=== PATIENT | male | born 1950 | race African-American/Black ===

== ENCOUNTER 2017-12-25 22:17 | Inpatient (IN) | payer MEDICARE, MEDICAID ==
[2017-12-26] MEDS ORDERED: Nitroglycerin 2% Ointment 1 INCH/1 GM Packet ONE (00:09)
[2017-12-26 00:42] LABS: Troponin I 0.042 ng/mL (< 0.028)
[2017-12-26] MEDS ORDERED: Acetaminophen 325 MG TAB PO PRN (01:10)
[2017-12-26] MEDS ORDERED: Ondansetron ODT 4 MG TAB SL PRN (01:10)
[2017-12-26 01:54] VITALS: BMI 28.9
[2017-12-26] MEDS ORDERED: Furosemide 40 MG/4 ML VIAL SLOW IVP SCH ×3 (06:00→14:00)
[2017-12-26 06:48] LABS: #Eosinphils 0.5 thou/uL (0.0-0.7); #Lymphocytes 0.8 thou/uL (1.20-3.40); #Monocytes 0.6 thou/uL (0.11-0.59); #Neutrophils 9.1 thou/uL (1.40-6.50); %Basophils 0.4 % (0.0-1.0); %Eosinophils 4.3 % (0.0-10.0); %Lymphocytes 7.4 % (21.0-51.0); %Monocytes 5.1 % (0.0-10.0); %Neutrophils 82.8 % (42.0-75.0); Hemoglobin 12.7 g/dL (14.0-18.0); Mean Corpuscular HGB CONC 32.8 g/dL (32.0-36.0); Mean Corpuscular Hemoglobin 27.3 pg (27.0-31.0); Mean Corpuscular Volume 83.3 fL (78.0-98.0); Mean Platelet Volume 8.7 fL (7.4-10.4); Platelet Count 458 thou/uL (130-400); RBC Distribution Width 18.7 % (11.5-14.5); Red Blood Cell (RBC) Count 4.65 mill/uL (4.70-6.10)
[2017-12-26 07:03] LABS: Anion Gap 12 mmol/L (10-20); BUN (Urea Nitrogen) 12 mg/dL (8.4-25.7); Calc. Creatinine Clearance 85 mL/min (70-130); Calcium 8.8 mg/dL (7.8-10.44); Carbon Dioxide 24 mmol/L (23-31); Chloride 89 mmol/L (98-107); Estimated GFR-MDRD 86; Glucose 105 mg/dL (80-115); Potassium 4.2 mmol/L (3.5-5.1); Sodium 121 mmol/L (136-145)
[2017-12-26 08:01] LABS: Hemoglobin A1c 4.9 % (4.0-6.0)
[2017-12-26 08:04] LABS: ALT (SGPT) 8 U/L (8-55); AST (SGOT) 15 U/L (5-34); Albumin 3.7 g/dL (3.4-4.8); Alkaline Phosphatase 128 U/L (40-150); Bilirubin, Direct 0.7 mg/dL (0.1-0.3); Bilirubin, Total 1.4 mg/dL (0.2-1.2); Protein, Total 5.9 g/dL (5.8-8.1)
[2017-12-26 08:09] LABS: Troponin I 0.059 ng/mL (< 0.028)
[2017-12-26] MEDS ORDERED: Aspirin 325 mg Enteric Coated Tablet PO SCH (09:00)
[2017-12-26] MEDS: Rivaroxaban 10 MG TAB PO SCH (09:41)
[2017-12-26] MEDS: Carvedilol 3.125 MG TAB PO SCH ×2 (09:41→20:43)
[2017-12-26] MEDS: levETIRAcetam 500 MG TAB PO SCH ×2 (09:42→20:43)
[2017-12-26] MEDS: metFORMIN 500 MG TAB PO SCH ×2 (09:42→16:50)
--- NOTE | 2017-12-26 09:58 | ULT ---
ABDOMINAL ULTRASOUND: Date: 12/26/17 HISTORY: Evaluate for ascites. Cirrhosis. FINDINGS: Liver is mildly prominent, measuring up to 18.0 cm. There is a small amount of fluid around the liver margin. Images of the gallbladder reveal mobile echogenic gallstones layering dependently. There is perichole cystic fluid and edema. Gallbladder wall is mildly thickened. Technologist describes a negative Pasquale y's sign. Common bile duct is normal caliber. The visualized spleen and pancreas appear unremarkable. Right kid rios is imaged and appears unremarkable. Evidence of a small right pleural effusion is noted. IMPRESSION: 1. Minimal ascites with a small amount of free fluid around the liver margin. 2. Right pleural effusion. 3. Cholelithiasis. The gallbladder wall is edematous, possibly on the basis of ascites. There is a n egative Ying's sign. POS: [facility]
[2017-12-26 10:27] LABS: Bilirubin Negative (Negative); Blood, Urine Negative (Negative); Clarity CLEAR (Clear); Glucose, Urine (Dipstick) Negative (Negative); Leukocyte Negative (Negative); Nitrite Negative (Negative); Protein, Urine (Dipstick) Negative (Neg-Trace); Specific Gravity, Urine 1.007 (1.002-1.036); Urobilinogen 0.2 mg/dL (0.2-1.0)
[2017-12-26] MEDS ORDERED: Bisacodyl 10 MG SUPP PR PRN (10:44)
[2017-12-26] MEDS ORDERED: Senokot 8.6 MG TAB PO PRN (10:44)
[2017-12-26] MEDS ORDERED: Milk Of Magnesia 30 ML UDCUP PO PRN (10:44)
--- NOTE | 2017-12-26 10:44 | PDOC.PN ---
- Subjective Encounter Start Date: 12/26/17 Encounter Start Time: 10:42 Mr. Romero was seen today in follow-up of abdominal distention and confusion. He was admitted earlier this morning by Dr. Rivera. He is awake and alert, but oriented to person only. He is complaining of pain in his left foot, says it feels like someone pinched it really hard. He denies feeling short of breath, but admits to lower extremity edema. He also denies abdominal pain. He tells me his last bowel movement was yesterday. - Objective MAR Reviewed: Yes Vital Signs & Weight: Vital Signs (12 hours) Temp Pulse Resp BP Pulse Ox 12/26/17 08:45 97.1 F L 82 18 119/70 96 12/26/17 04:00 97.8 F 81 14 125/65 97 12/26/17 01:53 98.7 F 84 22 H 121/79 96 12/26/17 01:15 98.7 F 84 22 H 96 Weight Weight 190 lb 4.8 oz I&O: 12/25/17 12/26/17 12/27/17 06:59 06:59 06:59 Output Total 1250 Balance -1250 Result Diagrams: 12/26/17 06:38 12/26/17 06:38 Additional Labs: Accuchecks 12/26/17 05:59 POC Glucose 109 Phys Exam - Physical Examination HEENT: PERRLA, sclera anicteric Respiratory: no wheezing, clear to auscultation bilateral + rales at the bases Cardiovascular: RRR, no significant murmur, no rub Gastrointestinal: soft, non-tender, positive bowel sounds + distended Musculoskeletal: edema present + edema and warmth of the left foot, skin excoriation of the dorum R foot edema, no warmth Neurological: non-focal, moves all 4 limbs Dx/Plan (1) CHF exacerbation Code(s): I50.9 - HEART FAILURE, UNSPECIFIED Status: Acute (2) Acute metabolic encephalopathy Code(s): G93.41 - METABOLIC ENCEPHALOPATHY Status: Acute (3) Swelling of left foot Code(s): M79.89 - OTHER SPECIFIED SOFT TISSUE DISORDERS Status: Acute (4) Cholelithiasis Code(s): K80.20 - CALCULUS OF GALLBLADDER W/O CHOLECYSTITIS W/O OBSTRUCTION Status: Acute (5) Hypertension Code(s): I10 - ESSENTIAL (PRIMARY) HYPERTENSION Status: Acute (6) Diabetes mellitus type 2 in nonobese Code(s): E11.9 - TYPE 2 DIABETES MELLITUS WITHOUT COMPLICATIONS Status: Acute - Plan * Abdominal distention- this is thought to be due to CHF exacerbation- will continue to diurese- the abdominal ultrasound demonstrated only minimal ascites - will therefore check an Abdominal series to rule out obstruction/ileus * CHF- ? type- await Echo, and will check BNP * Cholelithiasis- I doubt this is contributing to his symptoms, but can consider HIDA, if is mental status does not improve * Encephalopathy- UA has been ordered, will continue to monitor * Left foot pain- ? cellulitis vs. Gout- will check a uric acid, and start Rocephin empirically * ? DM- will add SSI * Hyponatremia- ? volume overload- from CHF vs. possible liver disease- will observe sodium level after diuresing- and re-evaluate. * Xarelto- Not sure why he is on anticoagulation- will need to find old records
[2017-12-26] MEDS ORDERED: Dextrose 50% Abboject 50 ML SYRINGE SLOW IVP PRN (10:57)
[2017-12-26] MEDS ORDERED: HumaLOG 300 UNITS/3 ML VIAL SC PRN ×2 (10:57)
[2017-12-26] MEDS ORDERED: Dextrose 5% in Water 1,000 ML IV PRN (10:57)
[2017-12-26] MEDS: cefTRIAXone\\ROCEPHIN 1 GM in Sodium Chloride 0.9% 100 ML IVPB SCH (11:15)
[2017-12-26 12:31] LABS: Anion Gap 11 mmol/L (10-20); BUN (Urea Nitrogen) 12 mg/dL (8.4-25.7); Calc. Creatinine Clearance 84 mL/min (70-130); Calcium 8.6 mg/dL (7.8-10.44); Carbon Dioxide 26 mmol/L (23-31); Chloride 89 mmol/L (98-107); Estimated GFR-MDRD 86; Glucose 110 mg/dL (80-115); Potassium 4.2 mmol/L (3.5-5.1); Sodium 122 mmol/L (136-145)
--- NOTE | 2017-12-26 13:25 | RAD ---
ABDOMEN 1 VIEW: Date: 12/26/17 HISTORY: Abdominal distention in a 67-year-old male. FINDINGS: There is some gas and fecal material in the colon, including some solid fecal material in a minimally dilated rectum. No evidence for large or small bowel obstruction. There is some rotation to the left , as well as motion artifact, which somewhat lowers the sensitivity of this study. No overt calculus. IMPRESSION: No overt large or small bowel obstruction. Solid fecal material in a minimally dilated rectum, eviden ce for some constipation. POS: [facility]
[2017-12-26 15:32] LABS: Sodium 122 mmol/L (136-145)
--- NOTE | 2017-12-26 15:59 | CON ---
DATE OF CONSULTATION: 12/26/2017 SERVICE: Renal medicine. HISTORY OF PRESENT ILLNESS: Mr. Romero is a 67-year-old black male who was admitted for abdominal p ain/distention. He was found to have anasarca. He does have a history of CHF. He was also noted to be hyponatremic. At that time, we felt that due to the volume overload, he may have dilutional hypo natremia. This morning, he was feeling better. His serum sodium is also slightly improved. He was started on Lasix 80 mg IV q.12. He has no other complaints. REVIEW OF SYSTEMS: The patient states that he has no chest pain. Mild shortness of breath. Positiv e for abdominal distention. Positive for chronic leg edema. Occasional nausea. No headache, no dip lopia, no sore throat, no syncopal episode. Positive for constipation, no diarrhea. Occasional join t pains. HOME MEDICATIONS: Includes the following; Benadryl 50 mg daily, metformin 500 mg b.i.d., carvedilol 3.125 mg once a day, Xarelto 20 mg once a day, risperidone 4 mg daily, levetiracetam 500 mg 2 times a day. PAST MEDICAL HISTORY: The patient has history of CHF. He has history of type 2 diabetes mellitus. He has history of seizure disorder? The patient has also history of hypertension, type 2 diabetes me llitus. He actually has history of schizophrenia. PAST SURGICAL HISTORY: Denies any surgeries. SOCIAL HISTORY: The patient has decreased hearing. He is and lives with his . 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 Education: 12th grade. Currently, not smoking. Currently, denies any alcohol intake. No children. ALLERGIES: No known drug allergies. TRAUMA: None. IMMUNIZATIONS: Unknown. HOSPITALIZATIONS: Please see past medical history. FAMILY HISTORY: Noncontributory. PHYSICAL EXAMINATION: VITAL SIGNS: Blood pressure is 119/70, heart rate 82, respiratory rate 18, temperature 97.1, pulse o x 96%. GENERAL: Noted to be awake, alert, comfortable, not in distress. SKIN: Adequate turgor. HEENT: He has pinkish conjunctivae, anicteric sclerae. NECK: No neck mass, no carotid bruits, no JVD. CHEST: No deformities. LUNGS: Decreased breath sounds. HEART: Normal sinus rhythm. No murmur, no gallops, no rubs. ABDOMEN: Globular, soft, nontender. Mild ascites. EXTREMITIES: Positive for edema. NEUROLOGICAL: Awake, oriented to 3 spheres. Moving all extremities. No tremors, no asterixis, no a taxia. CURRENT HOSPITAL MEDICATIONS: Includes ceftriaxone 1 g IV daily and Lasix 80 mg IV q.12, Humalog sli ding scale. LABORATORY AND X-RAY FINDINGS: Laboratories of 12/26/2017; urinalysis was negative. Serologies: He patitis C antibody negative. Initial sodium from [place] was 117/119. Currently, it is 121. Potassium 4.2, chloride 89, carbon dioxide 24, BUN 12, creatinine 1.04, glucose 105, calcium 8.8. Ultrasound of the abdomen shows right pleural effusion, but minimal ascites, cholelithiasis. ASSESSMENT AND PLAN: 1. Anasarca. I agree with Lasix 80 mg IV q.12. Adjust as needed. We will observe how renal functi on will respond in 2 days. Continue free water restriction. 2. Anasarca - he does not show any proteinuria from the urine. This pleural effusion may be related to underlying cardiac problem. I would suggest we do a cardiac workup for this patient, if this has not been done in the past. Please note he has significant pleural effusion. Continue diuresis. We will consider rechecking base met and CBC in a.m. 3. Hyponatremia - most likely dilutional in etiology. Agree with current IV diuretics. I will adju st diuretics as needed.
[2017-12-26 18:52] LABS: Anion Gap 15 mmol/L (10-20); BUN (Urea Nitrogen) 11 mg/dL (8.4-25.7); Calc. Creatinine Clearance 76 mL/min (70-130); Calcium 8.9 mg/dL (7.8-10.44); Carbon Dioxide 27 mmol/L (23-31); Chloride 87 mmol/L (98-107); Estimated GFR-MDRD 75; Glucose 94 mg/dL (80-115); Potassium 4.7 mmol/L (3.5-5.1); Sodium 124 mmol/L (136-145)
[2017-12-26] MEDS: risperiDONE 1 MG TAB PO SCH (20:43)
[2017-12-26] MEDS: diphenhydrAMINE 50 MG CAP PO SCH (20:43)
[2017-12-26] MEDS: Docusate 100 MG CAP PO SCH (20:43)
[2017-12-27 01:06] LABS: Anion Gap 15 mmol/L (10-20); BUN (Urea Nitrogen) 12 mg/dL (8.4-25.7); Calc. Creatinine Clearance 74 mL/min (70-130); Calcium 8.6 mg/dL (7.8-10.44); Carbon Dioxide 25 mmol/L (23-31); Chloride 91 mmol/L (98-107); Estimated GFR-MDRD 73; Glucose 76 mg/dL (80-115); Potassium 3.9 mmol/L (3.5-5.1); Sodium 127 mmol/L (136-145)
[2017-12-27 08:08] LABS: #Eosinphils 0.5 thou/uL (0.0-0.7); #Lymphocytes 1.1 thou/uL (1.20-3.40); #Monocytes 0.5 thou/uL (0.11-0.59); #Neutrophils 8.5 thou/uL (1.40-6.50); %Basophils 0.3 % (0.0-1.0); %Eosinophils 4.6 % (0.0-10.0); %Lymphocytes 10.2 % (21.0-51.0); %Monocytes 5.1 % (0.0-10.0); %Neutrophils 79.8 % (42.0-75.0); Hemoglobin 13.4 g/dL (14.0-18.0); Mean Corpuscular HGB CONC 32.3 g/dL (32.0-36.0); Mean Corpuscular Hemoglobin 27.4 pg (27.0-31.0); Mean Corpuscular Volume 84.8 fL (78.0-98.0); Mean Platelet Volume 8.3 fL (7.4-10.4); Platelet Count 443 thou/uL (130-400); RBC Distribution Width 18.6 % (11.5-14.5); White Blood Cell (WBC) Count 10.6 thou/uL (4.8-10.8)
[2017-12-27 08:12] LABS: Anion Gap 14 mmol/L (10-20); BUN (Urea Nitrogen) 11 mg/dL (8.4-25.7); Calc. Creatinine Clearance 76 mL/min (70-130); Calcium 8.8 mg/dL (7.8-10.44); Carbon Dioxide 25 mmol/L (23-31); Chloride 93 mmol/L (98-107); Estimated GFR-MDRD 76; Glucose 88 mg/dL (80-115); Sodium 128 mmol/L (136-145)
[2017-12-27] MEDS ORDERED: Prevnar 13-Val Conj/PF 0.5 ML SYRINGE IM ONE (09:00)
--- NOTE | 2017-12-27 09:31 | PRG ---
DATE OF SERVICE: 12/27/2017 SERVICE: Renal Medicine. SUBJECTIVE: Mr. Romero is a 67-year-old black male with anasarca and was referred to Nephrology for his hyponatremia. His initial serum sodium was less than 120. He is now currently 128. He was giv en IV Lasix 80 mg IV q.12 hours. Currently, it is now on hold. No other complaints. He voices no s hortness of breath or chest pain. OBJECTIVE: VITAL SIGNS: Blood pressure 137/76, heart rate 84, respiratory rate 16, temperature 98.1, pulse ox 9 6%. GENERAL: Awake, alert, comfortable, not in distress. SKIN: Adequate turgor. HEENT: Pinkish conjunctivae, anicteric sclerae. NECK: No neck mass, no carotid bruits, no JVD. CHEST: No deformities. LUNGS: Decreased breath sounds. HEART: Normal sinus rhythm. No murmur, no gallops, no rubs. ABDOMEN: Globular, soft, nontender, no masses. He has some mild ascites. EXTREMITIES: Positive for edema. MEDICATIONS: Of 12/27/2017 was reviewed. LABORATORY DATA AND IMAGING: Of 12/27/2017, sodium was 128, potassium 4, chloride 93, carbon dioxide 25, BUN 11, creatinine 1.16, glucose 88, calcium 8.8. BNP is 982.1. White count 10.6, hemoglobin 1 3.4. Cardiac echo showed an ejection fraction of 15%-20%. ASSESSMENT AND PLAN: 1. Hyponatremia secondary to dilutional hyponatremia. My suggestion is at least to maintain him Las ix 40 mg tab b.i.d. He does have anasarca and history of congestive heart failure. 2. Congestive heart failure - repeat cardiac echo showed 15%-20%. Resume Lasix 40 mg tab b.i.d. Please note that the serum sodium is much improved compared on admission. Continue supportive care.
[2017-12-27] MEDS: Carvedilol 3.125 MG TAB PO SCH ×2 (09:55→20:48)
[2017-12-27] MEDS: Docusate 100 MG CAP PO SCH ×2 (09:55→20:48)
[2017-12-27] MEDS: metFORMIN 500 MG TAB PO SCH ×2 (09:55→17:48)
[2017-12-27] MEDS: Rivaroxaban 10 MG TAB PO SCH (09:56)
[2017-12-27] MEDS: levETIRAcetam 500 MG TAB PO SCH ×2 (09:56→20:47)
--- NOTE | 2017-12-27 10:00 | PDOC.PN ---
- Subjective Encounter Start Date: 12/27/17 Encounter Start Time: 09:58 Mr. Romero was seen today in follow-up of CHF exacerbation. He is still confused. He says he feel rough, but can not explain this much further. He is laying flat in bed, but does not appear in distress. - Objective MAR Reviewed: Yes Vital Signs & Weight: Vital Signs (12 hours) Temp Pulse Resp BP Pulse Ox 12/27/17 08:13 98.1 F 84 16 137/76 96 Weight Weight 190 lb 4.8 oz I&O: 12/26/17 12/27/17 12/28/17 06:59 06:59 06:59 Intake Total 938 Output Total 1250 4400 Balance -1250 -8612 Result Diagrams: 12/27/17 07:38 12/27/17 07:38 Additional Labs: Accuchecks 12/27/17 12/26/17 12/26/17 05:56 20:46 16:52 POC Glucose 84 100 120 H 12/26/17 11:26 POC Glucose 128 H Phys Exam - Physical Examination HEENT: PERRLA Respiratory: no wheezing + rales at the bases R>L Cardiovascular: RRR, no significant murmur, no rub Gastrointestinal: soft, non-tender, no distention, positive bowel sounds Musculoskeletal: edema present + edema, bot ankles, but decreased from yesterday Dx/Plan (1) CHF exacerbation Code(s): I50.9 - HEART FAILURE, UNSPECIFIED Status: Acute (2) Acute metabolic encephalopathy Code(s): G93.41 - METABOLIC ENCEPHALOPATHY Status: Acute (3) Swelling of left foot Code(s): M79.89 - OTHER SPECIFIED SOFT TISSUE DISORDERS Status: Acute (4) Cholelithiasis Code(s): K80.20 - CALCULUS OF GALLBLADDER W/O CHOLECYSTITIS W/O OBSTRUCTION Status: Acute (5) Hypertension Code(s): I10 - ESSENTIAL (PRIMARY) HYPERTENSION Status: Acute (6) Diabetes mellitus type 2 in nonobese Code(s): E11.9 - TYPE 2 DIABETES MELLITUS WITHOUT COMPLICATIONS Status: Acute (7) Acute on chronic systolic heart failure Code(s): I50.23 - ACUTE ON CHRONIC SYSTOLIC (CONGESTIVE) HEART FAILURE Status : Acute (8) Acute on chronic systolic heart failure, NYHA class 3 Code(s): I50.23 - ACUTE ON CHRONIC SYSTOLIC (CONGESTIVE) HEART FAILURE Status : Acute - Plan * Acute on chronic systolic heart failure- he appears to be a class 2, or 3, but he is a poor historian- Will continue to diurese * His EF is very low- I spoke with his niece on the phone, and she tells me that his Primary Care Provider is Dr. Mccauley in [facility],and his phone number is [phone]. She says that he told the patient that his heart is " weak" and had referred him to see a Diagnostics Tech in [place], but the patient has not yet gone. She also tells me he has a history of Diabetes and hypertension, as well as seizure disorder. When asked why he is on the blood thinner Xarelto, she says he has a condition which starts with the letter "P" and is a long word. I said Pulmonary Embolus, and she says " that's it". * CHF- will consult Cardiology * DM- follow-up with accuchecks,and SSI * Seizure disorder- will clarify and continue his home medications * History of PE- continue Xarelto * Hyponatremia- likely due to CHF- will continue with diuresing- and continue to monitor- this is improving * Will also request his records from Dr. Mccauley * Patient's sister- Hazel Lovell [phone] or cell- [phone].
--- NOTE | 2017-12-27 11:41 | RAD ---
CHEST 1 VIEW: HISTORY: Dyspnea. CHF. COMPARISON: None. FINDINGS: Enlarged cardiac silhouette. Bibasilar pleural and parenchymal changes. No pneumothorax. IMPRESSION: Congestive heart failure. POS: [facility]
[2017-12-27] MEDS: cefTRIAXone\\ROCEPHIN 1 GM in Sodium Chloride 0.9% 100 ML IVPB SCH (11:55)
[2017-12-27 14:03] LABS: Anion Gap 12 mmol/L (10-20); BUN (Urea Nitrogen) 11 mg/dL (8.4-25.7); Calc. Creatinine Clearance 81 mL/min (70-130); Calcium 8.7 mg/dL (7.8-10.44); Carbon Dioxide 27 mmol/L (23-31); Chloride 95 mmol/L (98-107); Estimated GFR-MDRD 81; Glucose 79 mg/dL (80-115); Potassium 4.1 mmol/L (3.5-5.1); Sodium 130 mmol/L (136-145)
[2017-12-27] MEDS: Furosemide 40 MG TAB PO SCH (14:13)
--- NOTE | 2017-12-27 16:10 | CON ---
DATE OF CONSULTATION: 12/27/2017 REASON FOR CONSULTATION: Heart failure. HISTORY OF PRESENT ILLNESS: Mr. Romero is a 67-year-old -[place] gentleman, who comes to [facility] for abdominal distention and pain. He was found to have anasarca with fluid in both legs and ascites. He has a history of heart failure, apparently was also hyponatremic. He was started on IV Lasix and he has diuresed well. His breathing is better. His edema is still there, but his abdo ari distention is better. He is somewhat confused and unable to give a good history. He does not know much about his health. According to records, Dr. Beach' note is very nice and she spoke with his primary care doctor, who apparently just recently diagnosed him with a heart failure and a reduc ed EF and had sent him to see a choker hooker in [place], but apparently [facility]. Currently, he is unable to give me much history, and there is no one else in the room, but the sitter. PAST MEDICAL HISTORY: 1. History of heart failure as above. 2. Type 2 diabetes. 3. Seizure disorder. 4. Hypertension. 5. Schizophrenia apparently. 6. History of pulmonary embolism, for which he is on Xarelto at this time. OUTPATIENT MEDICATIONS: 1. Benadryl 50 mg a day. 2. Metformin 500 mg b.i.d. 3. Carvedilol 3.125 mg b.i.d. 4. Xarelto 10 mg a day. 5. Risperidone 4 mg a day. 6. Levetiracetam/Keppra 500 mg twice a day. PAST SURGICAL HISTORY: None. SOCIAL HISTORY: No alcohol, tobacco, or drugs from chart review. ALLERGIES: No known drug allergies. FAMILY HISTORY: Unobtainable, as patient is confused. REVIEW OF SYSTEMS: Unobtainable, as the patient is confused. PHYSICAL EXAMINATION: VITAL SIGNS: Temperature 98.0, pulse 79, respiratory rate 17, satting 96% on room air, blood pressur e 107/62. GENERAL: Awake, alert, oriented to person only, in no distress. HEENT: Normocephalic, atraumatic. NECK: Supple, with JVP at about 12 cm of water. LUNGS: Clear bilaterally. CARDIOVASCULAR: S1 and S2, no S3. ABDOMEN: Soft. EXTREMITIES: A 3+ edema. SKIN: Warm and dry. LABORATORY WORK: Reviewed. White count 11, down to 10.6; hemoglobin 13.4; platelet count of 443. C hemistries: Sodium was 121 on admission, up to 130 now. BNP on admission was 811 and this was up to 982. UA is unremarkable. Keppra level is normal. Troponins have been in the intermediate range. Chest x-ray on admission, findings suggestive of heart failure. Abdominal ultrasound showed minimal ascites and a small amount of free fluid around the liver margin, right pleural effusion, and cholelithiasis. ASSESSMENT AND PLAN: 1. 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 2. Pleural effusion. 3. Anasarca, likely from heart failure. 4. Seizure disorder. 5. Schizophrenia. PLAN: 1. Agree with continued IV Lasix, even though he is able to lay flat now and his abdomen is less dis tended. He still has a significant amount of fluid evidenced just by his 3+ edema. He will need aleah e sort of risk stratification for ischemia. Because of his schizophrenia, he may not be a candidate for an automated implantable cardioverter-defibrillator. We will discuss later. At this point, cont inue IV diuresis. 2. We will need a beta ivonne and SULEIMAN inhibitor to be started once blood pressure allows. He is al ready on carvedilol at home. We will see if we can add low dose SULEIMAN inhibitor. 3. For his chronic anticoagulation, continue Xarelto for now, as this supposedly is due to pulmonary embolism. If we were to decide to do heart catheterization in the future, we will have to hold for a couple days beforehand. 4. Continue conservative therapy for now. Thank you for letting us participate in the care of your patient. We will follow.
[2017-12-27 18:47] LABS: Anion Gap 14 mmol/L (10-20); BUN (Urea Nitrogen) 10 mg/dL (8.4-25.7); Calc. Creatinine Clearance 80 mL/min (70-130); Carbon Dioxide 27 mmol/L (23-31); Chloride 94 mmol/L (98-107); Estimated GFR-MDRD 80; Glucose 86 mg/dL (80-115); Potassium 4.1 mmol/L (3.5-5.1); Sodium 131 mmol/L (136-145)
[2017-12-27] MEDS: risperiDONE 1 MG TAB PO SCH (20:47)
[2017-12-27] MEDS: diphenhydrAMINE 50 MG CAP PO SCH (20:48)
[2017-12-28 01:09] LABS: Anion Gap 12 mmol/L (10-20); BUN (Urea Nitrogen) 10 mg/dL (8.4-25.7); Calc. Creatinine Clearance 78 mL/min (70-130); Calcium 8.9 mg/dL (7.8-10.44); Carbon Dioxide 28 mmol/L (23-31); Chloride 98 mmol/L (98-107); Estimated GFR-MDRD 78; Glucose 87 mg/dL (80-115); Potassium 3.7 mmol/L (3.5-5.1); Sodium 134 mmol/L (136-145)
[2017-12-28] MEDS: Rivaroxaban 10 MG TAB PO SCH (08:45)
[2017-12-28] MEDS: Docusate 100 MG CAP PO SCH ×2 (08:45→20:56)
[2017-12-28] MEDS: metFORMIN 500 MG TAB PO SCH ×2 (08:45→16:47)
[2017-12-28] MEDS: Carvedilol 3.125 MG TAB PO SCH ×2 (08:46→20:56)
[2017-12-28] MEDS: levETIRAcetam 500 MG TAB PO SCH ×2 (08:46→20:56)
[2017-12-28] MEDS: Furosemide 40 MG TAB PO SCH ×2 (08:46→16:47)
[2017-12-28 09:00] LABS: Anion Gap 14 mmol/L (10-20); BUN (Urea Nitrogen) 10 mg/dL (8.4-25.7); Calc. Creatinine Clearance 73 mL/min (70-130); Carbon Dioxide 26 mmol/L (23-31); Chloride 98 mmol/L (98-107); Estimated GFR-MDRD 73; Glucose 94 mg/dL (80-115); Potassium 3.6 mmol/L (3.5-5.1); Sodium 134 mmol/L (136-145)
--- NOTE | 2017-12-28 09:16 | PRG ---
DATE OF SERVICE: 12/28/2017 SUBJECTIVE: Mr. Romero is a 67-year-old black male who was admitted for CHF. He was also noted to be hyponatremic at that time. Renal Service has evaluated this patient and we felt that this was dil utional hyponatremia. He was initially given Lasix 80 mg IV q.12. His congestive heart failure impr shoshana and the serum sodium improved at that time. He is now on maintenance Lasix at 40 mg tab b.i.d. Cardiology has also evaluated this patient. He might be a candidate for AICD placement due to his u nderlying severe decreased ejection fraction. No other complaints today. Please note this patient h as underlying history of schizophrenia. PHYSICAL EXAMINATION: VITAL SIGNS: Blood pressure 113/73, heart rate 79, respiratory rate 18, temperature 98.4, pulse ox 9 2%. GENERAL: Noted to be awake, alert, comfortable, not in overt distress. SKIN: Adequate turgor. HEENT: He has pinkish conjunctivae, anicteric sclerae. NECK: No neck mass, no carotid bruits, no JVD. CHEST: No deformities. LUNGS: Decreased breath sounds. HEART: Normal sinus rhythm. No murmur, no gallops, no rubs. ABDOMEN: Globular, soft, nontender, no masses. EXTREMITIES: Positive for edema. MEDICATIONS: 12/28/2017 - Reviewed. LABORATORY DATA: 12/27/2017 - White count 10.6, hemoglobin 13.4. 12/28/2017 - Sodium 134, potassium 3.7, chloride 98, carbon dioxide 28, BUN 10, creatinine 1.14, gluc ose 87, calcium 8.9. ASSESSMENT AND PLAN: 1. Acute hyponatremia/dilutional hyponatremia. Improving serum sodium with diuretics. This is a di lutional hyponatremia secondary to his anasarca. He is currently on Lasix 40 mg tab b.i.d. He is to lerating the said regimen. 2. Congestive heart failure/decreased ejection fraction. Cardiology is following. Possibility of A ICD placement is being considered. Due to the improve hyponatremia, free water restriction, continuing diuretics. We will be signing of f. Please recall if needed.
[2017-12-28] MEDS: Lisinopril 5 MG TAB PO SCH (09:20)
--- NOTE | 2017-12-28 09:38 | PQF ---
CLINICAL DOCUMENTATION IMPROVEMENT CLARIFICATION FORM: ICD-10 Updated PLEASE DO AN ADDENDUM TO THE PROGRESS NOTE WITH ANY DOCUMENTATION UPDATES OR ADDITIONS AND CARRY THROUGH TO DC SUMMARY. THANK YOU. DATE: 12/28, 12/30 ATTN: DR. JACQUIE DIXON Please exercise your independent, professional judgment in responding to the clarification form. Clinical indicators are provided on the bottom of this form for your review. Please check appropriate box(s) to clarify if the following diagnosis has been ruled in or ruled out: ? CELLULITIS [ ] Ruled in diagnosis [ ] Continue to treat [ ] Resolved [ x ] Ruled out diagnosis [ ] Other diagnosis [ ] Unable to determine For continuity of documentation, please document condition throughout progress notes and discharge summary. Thank You. CLINICAL INDICATORS - SIGNS / SYMPTOMS / LABS WBC: 13.2 (12/25, [facility]) 11.0 (12/26) ATTENDING PN 12/26: ...HE IS COMPLAINING OF PAIN IN HIS L FOOT, SAYS IT FEELS LIKE SOMEONE PINCHED IT REALLY HARD. PHYSICAL EXAM: + EDEMA & WARMTH OF L FOOT, SKIN EXCORIATION OF THE DORSUM PLAN: L FOOT PAIN - ? CELLULITIS VS GOUT - WILL CHECK A URIC ACID, AND START ROCEPHIN EMPIRICALLY NO FURTHER DOCUMENTATION OF CELLULITIS RISK FACTORS: ELEVATED WBC L FOOT PAIN W/SKIN EXCORIATION OF THE DORSUM TREATMENT: IV ANTIBIOTIC (ROCEPHIN 12/26 - PRESENT) THANK YOU! Zandra (This form is maintained as a part of the permanent medical record) 2014 [employer]. All Rights Reserved Zandra Hamilton RN, BSN [email or web address] Office: [phone] [facility]
[2017-12-28 11:25] LABS: ALT (SGPT) 8 U/L (8-55); AST (SGOT) 18 U/L (5-34); Albumin 3.6 g/dL (3.4-4.8); Alkaline Phosphatase 111 U/L (40-150); Bilirubin, Direct 0.4 mg/dL (0.1-0.3); Bilirubin, Total 0.7 mg/dL (0.2-1.2); Protein, Total 5.7 g/dL (5.8-8.1)
[2017-12-28] MEDS ORDERED: Melatonin 3 MG TAB PO PRN (11:59)
[2017-12-28] MEDS: Cephalexin 250 MG CAP PO SCH ×2 (12:32→20:56)
--- NOTE | 2017-12-28 15:22 | PDOC.PN ---
- Subjective Encounter Start Date: 12/28/17 Encounter Start Time: 09:00 Subjective: pt up in bed no complains - Objective Vital Signs & Weight: Vital Signs (12 hours) Temp Pulse Resp BP Pulse Ox 12/28/17 09:20 79 12/28/17 08:00 97.7 F 77 16 114/68 96 Weight Weight 190 lb 4.8 oz I&O: 12/27/17 12/28/17 12/29/17 06:59 06:59 06:59 Intake Total 938 750 Output Total 7068 9070 Balance -4517 -1212 Result Diagrams: 12/27/17 07:38 12/28/17 08:30 Additional Labs: Accuchecks 12/28/17 12/27/17 12/27/17 10:55 20:51 17:38 POC Glucose 114 H 99 96 12/27/17 11:08 POC Glucose 139 H Phys Exam - Physical Examination HEENT: PERRLA, moist MMs, sclera anicteric, TM's clear, oral pharynx no lesions , 2+ tonsils Neck: no nodes, no JVD, supple, full ROM Respiratory: no wheezing, no rales, no rhonchi, wheezing present, clear to auscultation bilateral Cardiovascular: RRR, no significant murmur, no rub, gallop, irregular Deviation from normal: pt up in bed oriented to self only Dx/Plan (1) Acute on chronic systolic heart failure, NYHA class 3 Code(s): I50.23 - ACUTE ON CHRONIC SYSTOLIC (CONGESTIVE) HEART FAILURE Status : Acute (2) Acute metabolic encephalopathy Code(s): G93.41 - METABOLIC ENCEPHALOPATHY Status: Acute (3) Diabetes mellitus type 2 in nonobese Code(s): E11.9 - TYPE 2 DIABETES MELLITUS WITHOUT COMPLICATIONS Status: Acute (4) Swelling of left foot Code(s): M79.89 - OTHER SPECIFIED SOFT TISSUE DISORDERS Status: Acute (5) Hypertension Code(s): I10 - ESSENTIAL (PRIMARY) HYPERTENSION Status: Acute - Plan will start pt on heart failure meds -: spoke with cardio no icd given his mental hx. * . Review of Systems - Review of Systems Eyes: negative: Pain, Vision Change, Conjunctivae Inflammation, Eyelid Inflammation, Redness, Other ENT: negative: Ear Pain, Ear Discharge, Nose Pain, Nose Discharge, Nose Congestion, Mouth Pain, Mouth Swelling, Throat Pain, Throat Swelling, Other Respiratory: negative: Cough, Dry, Shortness of Breath, Hemoptysis, SOB with Excertion, Pleuritic Pain, Sputum, Wheezing Cardiovascular: negative: chest pain, palpitations, orthopnea, paroxysmal nocturnal dyspnea, edema, light headedness, other Gastrointestinal: negative: Nausea, Vomiting, Abdominal Pain, Diarrhea, Constipation, Melena, Hematochezia, Other Genitourinary: negative: Dysuria, Frequency, Incontinence, Hematuria, Retention , Other - Medications/Allergies Allergies/Adverse Reactions: Allergies Allergy/AdvReac Type Severity Reaction Status Date / Time No Known Allergies Allergy Verified 12/26/17 01:51 Medications: Current Medications Bisacodyl (Dulcolax) 10 mg [place] DAILYPRN PRN PRN Reason: Constipation Last Admin: 12/28/17 09:21 Dose: 10 mg Carvedilol (Coreg) 3.125 mg PO BID [facility] Last Admin: 12/28/17 08:46 Dose: 3.125 mg Cephalexin (Keflex) 250 mg PO Q6HR [facility] Last Admin: 12/28/17 12:32 Dose: 250 mg Dextrose/Water (Dextrose 50%) 25 gm SLOW IVP PRN PRN PRN Reason: Hypoglycemia Docusate Sodium (Colace) 100 mg PO BID [facility] Last Admin: 12/28/17 08:45 Dose: 100 mg Furosemide (Lasix) 40 mg PO 0900,1400 [facility] Last Admin: 12/28/17 08:46 Dose: 40 mg Glucagon (Glucagon) 1 mg IM PRN PRN PRN Reason: Hypoglycemia Dextrose/Water (D5w) 1,000 mls @ 0 mls/hr IV .Q0M PRN; As Directed PRN Reason: Hypoglycemia Insulin Human Lispro (Humalog) 0 units SC .MODERATE SLIDING SC PRN PRN Reason: Moderate Correctional Scale Insulin Human Lispro (Humalog) 0 units SC .BEDTIME SLIDING SC PRN PRN Reason: Bedtime Correctional Scale Levetiracetam (Keppra) 500 mg PO BID [facility] Last Admin: 12/28/17 08:46 Dose: 500 mg Lisinopril (Zestril) 5 mg PO DAILY [facility] Last Admin: 12/28/17 09:20 Dose: 5 mg Magnesium Hydroxide (Milk Of Magnesium) 30 ml PO DAILYPRN PRN PRN Reason: Constipation Melatonin (Melatonin) 3 mg PO HS PRN PRN Reason: Insomnia Metformin HCl (Glucophage) 500 mg PO BID-[facility] Last Admin: 12/28/17 08:45 Dose: 500 mg Risperidone (Risperidone) 4 mg PO HS [facility] Last Admin: 12/27/17 20:47 Dose: 4 mg Rivaroxaban (Xarelto) 20 mg PO DAILY [facility] Last Admin: 12/28/17 08:45 Dose: 20 mg Senna (Senokot) 2 tab PO HSPRN PRN PRN Reason: Constipation Last Admin: 12/27/17 09:57 Dose: 2 tab Spironolactone (Aldactone) 12.5 mg PO QAM-[facility]
--- NOTE | 2017-12-28 19:18 | PDOC.CTH ---
Cardiology Progress Note - Subjective No new issues. He remains confused. - Objective Vital Signs Temp Pulse Resp BP Pulse Ox 12/28/17 17:10 99.2 F 88 18 122/74 96 12/28/17 12:00 97.1 F L 78 115/68 96 12/28/17 09:20 79 12/28/17 08:00 97.7 F 77 16 114/68 96 Weight 190 lb 4.8 oz 12/27/17 12/28/17 12/29/17 06:59 06:59 06:59 Intake Total 938 750 862 Output Total 8593 6955 Balance -7802 -8603 862 - Physical Examination General/Neuro: alert & oriented x3, NAD Neck: no JVD present Lungs: CTA, unlabored respirations Heart: RRR Abdomen: NT/ND Extremities: other: (no edema.) - Telemetry Telemetry Rhythm: NSR - Labs Result Diagrams: 12/27/17 07:38 12/28/17 08:30 Troponin/CKMB Troponin I 0.059 ng/mL (< 0.028) H 12/26/17 07:43 - Assessment/Plan 1. Acute on chronic systolic heart failure. 2. AMS 3. Schizophrenia 4. Severe LV dysfunction. EF at 20-25% 5. Hx of PE PLAN: - Would switch lasix to PO. - On BB/ACEI/Aldactone - Would have him follow up as outpatient with Cardiology in [place] versus us here on follow up. Whichever route his family would prefer. - Home soon from cardiac perspective. - AICD contraindicated due to schizophrenia.
[2017-12-28] MEDS: risperiDONE 1 MG TAB PO SCH (20:57)
[2017-12-29] MEDS: Cephalexin 250 MG CAP PO SCH ×4 (00:10→17:50)
[2017-12-29 04:45] LABS: Hemoglobin 12.6 g/dL (14.0-18.0); Platelet Count 437 thou/uL (130-400)
[2017-12-29] MEDS: Lisinopril 5 MG TAB PO SCH (09:01)
[2017-12-29] MEDS: levETIRAcetam 500 MG TAB PO SCH ×2 (09:02→20:32)
[2017-12-29] MEDS: Furosemide 40 MG TAB PO SCH ×2 (09:02→13:56)
[2017-12-29] MEDS: Carvedilol 3.125 MG TAB PO SCH ×2 (09:02→20:32)
[2017-12-29] MEDS: Rivaroxaban 10 MG TAB PO SCH (09:02)
[2017-12-29] MEDS: metFORMIN 500 MG TAB PO SCH ×2 (09:02→17:15)
[2017-12-29] MEDS: Spironolactone 25 MG TAB PO SCH (09:02)
[2017-12-29] MEDS: Docusate 100 MG CAP PO SCH ×2 (09:03→20:32)
[2017-12-29] MEDS ORDERED: Gabapentin 100 MG CAP PO SCH (10:45)
[2017-12-29] MEDS ORDERED: Famotidine/PF 20 mg/2ml Vial SLOW IVP SCH (11:00)
--- NOTE | 2017-12-29 11:07 | RAD ---
KUB: Date: 12/29/17 PROVIDED CLINICAL HISTORY: Abdominal pain. FINDINGS: Comparison with 12/26/17. The abdominal bowel gas pattern is nonspecific. No radiographically apparent urinary tract calculi. T he osseous structures demonstrate no acute findings. The visualized lung bases appear clear. The supi ne nature of the study was limited in assessment for pneumoperitoneum. IMPRESSION: Nonspecific bowel gas pattern. POS: [facility]
--- NOTE | 2017-12-29 13:51 | ULT ---
BILATERAL LOWER EXTREMITY ARTERIAL DOPPLER ULTRASOUND: Date: 12/29/17 HISTORY: Bilateral lower extremity pain. FINDINGS: Peak systolic velocities in the lower extremities are as follows: RIGHT LOWER EXTREMITY: REUSE TECHNICIAN: 42 cm/sec Profunda: 39 cm/sec Proximal SFA: 53 cm/sec Mid SFA: 58 cm/sec Distal SFA: 52 cm/sec Popliteal: 48 cm/sec Anterior Tib: Unable to obtain. Posterior Tib: 119 cm/sec Dorsalis Pedis: 40 cm/sec There is triphasic waveform in the common femoral and posterior tibial arteries. There are biphasic w aveforms in the profunda, SFA, and popliteal arteries. Monophasic waveform was seen in the dorsalis p rico. The anterior tibial waveform could not be obtained. LEFT LOWER EXTREMITY: REUSE TECHNICIAN: 55 cm/sec Profunda: 52 cm/sec Proximal SFA: 62 cm/sec Mid SFA: 59 cm/sec Distal SFA: 57 cm/sec Popliteal: 75 cm/sec Anterior Tib: 41 cm/sec Posterior Tib: 76 cm/sec Dorsalis Pedis: 29 cm/sec There is triphasic flow in the REUSE TECHNICIAN, SFA, popliteal, and posterior tibial arteries. Biphasic waveforms are seen in the profunda and anterior tibial arteries. Monophasic waveforms are seen in the dorsalis pedis. IMPRESSION: Poor visualization of the right anterior tibial artery. Otherwise, no evidence of arterial occlusion is seen in either lower extremity. POS: [facility]
--- NOTE | 2017-12-29 14:53 | PDOC.PN ---
- Subjective Encounter Start Date: 12/29/17 Encounter Start Time: 10:30 Subjective: pt up in bed complains of pain to his abdomen area - Objective Vital Signs & Weight: Vital Signs (12 hours) Temp Pulse Resp BP BP BP Pulse Ox 12/29/17 12:15 98.2 F 76 16 119/69 100 12/29/17 09:01 74 127/74 12/29/17 08:00 97.2 F L 76 16 96 12/29/17 07:26 97.2 F L 76 16 110/66 96 12/29/17 04:00 98.7 F 76 19 120/70 95 Weight Weight 160 lb 6.4 oz I&O: 12/28/17 12/29/17 12/30/17 06:59 06:59 06:59 Intake Total 750 1262 Output Total 3285 850 Balance -2535 412 Result Diagrams: 12/29/17 04:13 12/29/17 04:13 Additional Labs: Accuchecks 12/29/17 12/29/17 12/28/17 10:27 05:53 20:49 POC Glucose 97 129 H 132 H 12/28/17 12/28/17 16:53 06:09 POC Glucose 88 96 Phys Exam - Physical Examination HEENT: PERRLA, moist MMs, sclera anicteric, TM's clear, oral pharynx no lesions , 2+ tonsils Neck: no nodes, no JVD, supple, full ROM Respiratory: no wheezing, no rales, no rhonchi, wheezing present, clear to auscultation bilateral Cardiovascular: RRR, no significant murmur, no rub, gallop, irregular Gastrointestinal: soft mild distention, bsx2, epigastric pain on palpation Musculoskeletal: no edema, pulses present, edema present Neurological: non-focal, normal sensation, moves all 4 limbs Dx/Plan (1) Acute on chronic systolic heart failure, NYHA class 3 Code(s): I50.23 - ACUTE ON CHRONIC SYSTOLIC (CONGESTIVE) HEART FAILURE Status : Acute (2) Acute metabolic encephalopathy Code(s): G93.41 - METABOLIC ENCEPHALOPATHY Status: Acute (3) Diabetes mellitus type 2 in nonobese Code(s): E11.9 - TYPE 2 DIABETES MELLITUS WITHOUT COMPLICATIONS Status: Acute (4) Swelling of left foot Code(s): M79.89 - OTHER SPECIFIED SOFT TISSUE DISORDERS Status: Acute (5) Hypertension Code(s): I10 - ESSENTIAL (PRIMARY) HYPERTENSION Status: Acute - Plan lower ext arterial doppler ordered pt has significant pain to lower ext -: will start pt on neurontin for possible neuropathic pain -: will start pt on pepcid for possible gastritis -: will also get abd xray. spoke with pt's sister and updated her. * . Review of Systems - Review of Systems Eyes: negative: Pain, Vision Change, Conjunctivae Inflammation, Eyelid Inflammation, Redness, Other ENT: negative: Ear Pain, Ear Discharge, Nose Pain, Nose Discharge, Nose Congestion, Mouth Pain, Mouth Swelling, Throat Pain, Throat Swelling, Other Respiratory: negative: Cough, Dry, Shortness of Breath, Hemoptysis, SOB with Excertion, Pleuritic Pain, Sputum, Wheezing Cardiovascular: negative: chest pain, palpitations, orthopnea, paroxysmal nocturnal dyspnea, edema, light headedness, other Gastrointestinal: Abdominal Pain. negative: Nausea, Vomiting, Diarrhea, Constipation, Melena, Hematochezia, Other - Medications/Allergies Allergies/Adverse Reactions: Allergies Allergy/AdvReac Type Severity Reaction Status Date / Time No Known Allergies Allergy Verified 12/26/17 01:51 Medications: Current Medications Bisacodyl (Dulcolax) 10 mg [place] DAILYPRN PRN PRN Reason: Constipation Last Admin: 12/28/17 09:21 Dose: 10 mg Carvedilol (Coreg) 3.125 mg PO BID [facility] Last Admin: 12/29/17 09:02 Dose: 3.125 mg Cephalexin (Keflex) 250 mg PO Q6HR [facility] Last Admin: 12/29/17 12:16 Dose: 250 mg Dextrose/Water (Dextrose 50%) 25 gm SLOW IVP PRN PRN PRN Reason: Hypoglycemia Docusate Sodium (Colace) 100 mg PO BID [facility] Last Admin: 12/29/17 09:03 Dose: 100 mg Famotidine (Pepcid) 20 mg SLOW IVP BID [facility] Furosemide (Lasix) 40 mg PO 0900,1400 [facility] Last Admin: 12/29/17 13:56 Dose: 40 mg Gabapentin (Neurontin) 100 mg PO BID [facility] Glucagon (Glucagon) 1 mg IM PRN PRN PRN Reason: Hypoglycemia Dextrose/Water (D5w) 1,000 mls @ 0 mls/hr IV .Q0M PRN; As Directed PRN Reason: Hypoglycemia Insulin Human Lispro (Humalog) 0 units SC .MODERATE SLIDING SC PRN PRN Reason: Moderate Correctional Scale Insulin Human Lispro (Humalog) 0 units SC .BEDTIME SLIDING SC PRN PRN Reason: Bedtime Correctional Scale Levetiracetam (Keppra) 500 mg PO BID [facility] Last Admin: 12/29/17 09:02 Dose: 500 mg Lisinopril (Zestril) 5 mg PO DAILY [facility] Last Admin: 12/29/17 09:01 Dose: 5 mg Magnesium Hydroxide (Milk Of Magnesium) 30 ml PO DAILYPRN PRN PRN Reason: Constipation Melatonin (Melatonin) 3 mg PO HS PRN PRN Reason: Insomnia Metformin HCl (Glucophage) 500 mg PO BID-[facility] Last Admin: 12/29/17 09:02 Dose: 500 mg Risperidone (Risperidone) 4 mg PO HS [facility] Last Admin: 12/28/17 20:57 Dose: 4 mg Rivaroxaban (Xarelto) 20 mg PO DAILY [facility] Last Admin: 12/29/17 09:02 Dose: 20 mg Senna (Senokot) 2 tab PO HSPRN PRN PRN Reason: Constipation Last Admin: 12/27/17 09:57 Dose: 2 tab Spironolactone (Aldactone) 12.5 mg PO [facility] Last Admin: 12/29/17 09:02 Dose: 12.5 mg
[2017-12-29] MEDS: Acetaminophen 325 MG TAB PO PRN (15:37)
[2017-12-29] MEDS: Gabapentin 100 MG CAP PO SCH (20:32)
[2017-12-29] MEDS: risperiDONE 1 MG TAB PO SCH (20:32)
[2017-12-29] MEDS: Famotidine/PF 20 mg/2ml Vial SLOW IVP SCH (20:33)
[2017-12-30] MEDS: Cephalexin 250 MG CAP PO SCH ×4 (00:13→17:24)
[2017-12-30] MEDS: Acetaminophen 325 MG TAB PO PRN ×2 (04:33→20:26)
[2017-12-30] MEDS: Famotidine/PF 20 mg/2ml Vial SLOW IVP SCH (09:12)
[2017-12-30] MEDS: Docusate 100 MG CAP PO SCH ×2 (09:13→20:25)
[2017-12-30] MEDS: Spironolactone 25 MG TAB PO SCH (09:13)
[2017-12-30] MEDS: Furosemide 40 MG TAB PO SCH ×2 (09:15→13:33)
[2017-12-30] MEDS: Lisinopril 5 MG TAB PO SCH (09:15)
[2017-12-30] MEDS: levETIRAcetam 500 MG TAB PO SCH ×2 (09:15→20:25)
[2017-12-30] MEDS: Carvedilol 3.125 MG TAB PO SCH ×2 (09:15→20:25)
[2017-12-30] MEDS: Gabapentin 100 MG CAP PO SCH ×2 (09:15→20:25)
[2017-12-30] MEDS: metFORMIN 500 MG TAB PO SCH ×2 (09:16→17:24)
[2017-12-30] MEDS: Rivaroxaban 10 MG TAB PO SCH (09:18)
--- NOTE | 2017-12-30 09:42 | PDOC.CTH ---
Cardiology Progress Note - Subjective No new issues. Had abdominal pain yesterday but he denies today. No chest pain, tightness, pressure. Breathing is back to baseline. - Objective Vital Signs Temp Pulse Resp BP BP Pulse Ox 12/30/17 08:35 98.1 F 74 18 116/60 98 12/30/17 04:00 98.2 F 74 16 120/71 95 Weight 157 lb 8 oz 12/29/17 12/30/17 12/31/17 06:59 06:59 06:59 Intake Total 1262 1020 Output Total 850 1900 Balance 412 -880 - Physical Examination General/Neuro: alert & oriented x3, NAD Neck: no JVD present Lungs: CTA, unlabored respirations Heart: RRR Abdomen: NT/ND Extremities: other: (no edema.) - Telemetry Telemetry Rhythm: NSR - Labs Result Diagrams: 12/29/17 04:13 12/29/17 04:13 Troponin/CKMB Troponin I 0.059 ng/mL (< 0.028) H 12/26/17 07:43 - Assessment/Plan 1. Acute on chronic systolic heart failure. 2. AMS 3. Schizophrenia 4. Severe LV dysfunction. EF at 20-25% 5. Hx of PE PLAN: - Would switch lasix to PO. - On BB/ACEI/Aldactone - Will get Nuclear stress test to evaluate for ischemia.
--- NOTE | 2017-12-30 18:03 | PDOC.PN ---
- Subjective Encounter Start Date: 12/30/17 Encounter Start Time: 11:00 Subjective: pt up in bed has some abdominal pain - Objective Vital Signs & Weight: Vital Signs (12 hours) Temp Pulse Resp BP BP Pulse Ox 12/30/17 16:00 97.9 F 76 18 136/86 99 12/30/17 13:34 98.6 F 69 19 119/76 98 12/30/17 08:40 98.6 F 69 19 12/30/17 08:35 98.1 F 74 18 116/60 98 Weight Weight 157 lb 8 oz I&O: 12/29/17 12/30/17 12/31/17 06:59 06:59 06:59 Intake Total 1262 1020 800 Output Total 850 1900 1100 Balance 412 -940 -300 Result Diagrams: 12/29/17 04:13 12/29/17 04:13 Additional Labs: Accuchecks 12/30/17 12/30/17 12/30/17 16:31 10:45 05:57 POC Glucose 74 164 H 85 12/29/17 12/29/17 20:48 16:36 POC Glucose 89 99 Phys Exam - Physical Examination HEENT: PERRLA, moist MMs, sclera anicteric, TM's clear, oral pharynx no lesions , 2+ tonsils Neck: no nodes, no JVD, supple, full ROM Respiratory: no wheezing, no rales, no rhonchi, wheezing present, clear to auscultation bilateral Cardiovascular: RRR, no significant murmur, no rub, gallop, irregular Gastrointestinal: soft mild abd pain all over Musculoskeletal: no edema, pulses present, edema present Dx/Plan (1) Acute on chronic systolic heart failure, NYHA class 3 Code(s): I50.23 - ACUTE ON CHRONIC SYSTOLIC (CONGESTIVE) HEART FAILURE Status : Acute (2) Acute metabolic encephalopathy Code(s): G93.41 - METABOLIC ENCEPHALOPATHY Status: Acute (3) Diabetes mellitus type 2 in nonobese Code(s): E11.9 - TYPE 2 DIABETES MELLITUS WITHOUT COMPLICATIONS Status: Acute (4) Swelling of left foot Code(s): M79.89 - OTHER SPECIFIED SOFT TISSUE DISORDERS Status: Acute (5) Hypertension Code(s): I10 - ESSENTIAL (PRIMARY) HYPERTENSION Status: Acute - Plan pt going for stress test in am -: pt on león/bb/diuretics * . Review of Systems - Review of Systems Eyes: negative: Pain, Vision Change, Conjunctivae Inflammation, Eyelid Inflammation, Redness, Other ENT: negative: Ear Pain, Ear Discharge, Nose Pain, Nose Discharge, Nose Congestion, Mouth Pain, Mouth Swelling, Throat Pain, Throat Swelling, Other Respiratory: negative: Cough, Dry, Shortness of Breath, Hemoptysis, SOB with Excertion, Pleuritic Pain, Sputum, Wheezing Cardiovascular: negative: chest pain, palpitations, orthopnea, paroxysmal nocturnal dyspnea, edema, light headedness, other Gastrointestinal: negative: Nausea, Vomiting, Abdominal Pain, Diarrhea, Constipation, Melena, Hematochezia, Other - Medications/Allergies Allergies/Adverse Reactions: Allergies Allergy/AdvReac Type Severity Reaction Status Date / Time No Known Allergies Allergy Verified 12/26/17 01:51 Medications: Current Medications Acetaminophen (Tylenol) 650 mg PO Q6H PRN PRN Reason: Mild Pain (1-3) Last Admin: 12/30/17 04:33 Dose: 650 mg Bisacodyl (Dulcolax) 10 mg [place] DAILYPRN PRN PRN Reason: Constipation Last Admin: 12/28/17 09:21 Dose: 10 mg Carvedilol (Coreg) 3.125 mg PO BID [facility] Last Admin: 12/30/17 09:15 Dose: 3.125 mg Dextrose/Water (Dextrose 50%) 25 gm SLOW IVP PRN PRN PRN Reason: Hypoglycemia Docusate Sodium (Colace) 100 mg PO BID [facility] Last Admin: 12/30/17 09:13 Dose: 100 mg Famotidine (Pepcid) 20 mg PO BID [facility] Furosemide (Lasix) 40 mg PO 0900,1400 [facility] Last Admin: 12/30/17 13:33 Dose: 40 mg Gabapentin (Neurontin) 100 mg PO BID [facility] Last Admin: 12/30/17 09:15 Dose: 100 mg Glucagon (Glucagon) 1 mg IM PRN PRN PRN Reason: Hypoglycemia Dextrose/Water (D5w) 1,000 mls @ 0 mls/hr IV .Q0M PRN; As Directed PRN Reason: Hypoglycemia Insulin Human Lispro (Humalog) 0 units SC .MODERATE SLIDING SC PRN PRN Reason: Moderate Correctional Scale Insulin Human Lispro (Humalog) 0 units SC .BEDTIME SLIDING SC PRN PRN Reason: Bedtime Correctional Scale Levetiracetam (Keppra) 500 mg PO BID [facility] Last Admin: 12/30/17 09:15 Dose: 500 mg Lisinopril (Zestril) 5 mg PO DAILY [facility] Last Admin: 12/30/17 09:15 Dose: 5 mg Magnesium Hydroxide (Milk Of Magnesium) 30 ml PO DAILYPRN PRN PRN Reason: Constipation Melatonin (Melatonin) 3 mg PO HS PRN PRN Reason: Insomnia Metformin HCl (Glucophage) 500 mg PO BID[facility] Last Admin: 12/30/17 17:24 Dose: 500 mg Risperidone (Risperidone) 4 mg PO [facility] Last Admin: 12/29/17 20:32 Dose: 4 mg Rivaroxaban (Xarelto) 20 mg PO DAILY [facility] Last Admin: 12/30/17 09:18 Dose: 20 mg Senna (Senokot) 2 tab PO HSPRN PRN PRN Reason: Constipation Last Admin: 12/27/17 09:57 Dose: 2 tab Spironolactone (Aldactone) 12.5 mg PO [facility] Last Admin: 12/30/17 09:13 Dose: 12.5 mg
[2017-12-30] MEDS: risperiDONE 1 MG TAB PO SCH (20:25)
[2017-12-30] MEDS: Famotidine 20 MG TAB PO SCH (20:26)
[2017-12-31 04:41] LABS: Hemoglobin 13.5 g/dL (14.0-18.0); Platelet Count 425 thou/uL (130-400)
[2017-12-31 04:42] LABS: #Eosinphils 0.5 thou/uL (0.0-0.7); #Monocytes 0.4 thou/uL (0.11-0.59); #Neutrophils 8.7 thou/uL (1.40-6.50); %Basophils 0.2 % (0.0-1.0); %Lymphocytes 9.2 % (21.0-51.0); %Neutrophils 81.7 % (42.0-75.0); Hemoglobin 13.5 g/dL (14.0-18.0); Mean Corpuscular HGB CONC 32.3 g/dL (32.0-36.0); Mean Corpuscular Hemoglobin 27.7 pg (27.0-31.0); Mean Platelet Volume 7.9 fL (7.4-10.4); Platelet Count 411 thou/uL (130-400); RBC Distribution Width 17.4 % (11.5-14.5); Red Blood Cell (RBC) Count 4.85 mill/uL (4.70-6.10); White Blood Cell (WBC) Count 10.6 thou/uL (4.8-10.8)
[2017-12-31 04:51] LABS: Anion Gap 14 mmol/L (10-20); BUN (Urea Nitrogen) 10 mg/dL (8.4-25.7); Calc. Creatinine Clearance 57 mL/min (70-130); Calcium 9.4 mg/dL (7.8-10.44); Carbon Dioxide 28 mmol/L (23-31); Chloride 98 mmol/L (98-107); Estimated GFR-MDRD 68; Glucose 86 mg/dL (80-115); Potassium 3.5 mmol/L (3.5-5.1); Sodium 136 mmol/L (136-145)
[2017-12-31] MEDS: Acetaminophen 325 MG TAB PO PRN ×2 (05:19→17:03)
[2017-12-31] MEDS: metFORMIN 500 MG TAB PO SCH ×2 (08:40→17:03)
[2017-12-31] MEDS ORDERED: Lorazepam 2 MG/ML VIAL SLOW IVP PRN (09:42)
[2017-12-31] MEDS: Furosemide 40 MG TAB PO SCH (10:50)
[2017-12-31] MEDS ORDERED: ADENOSINE 60 MG/20 ML VIAL ONE (11:07)
[2017-12-31] MEDS ORDERED: Furosemide 40 MG TAB PO SCH (12:00)
[2017-12-31] MEDS: Lisinopril 5 MG TAB PO SCH (12:04)
[2017-12-31] MEDS: Rivaroxaban 10 MG TAB PO SCH (12:05)
[2017-12-31] MEDS: Gabapentin 100 MG CAP PO SCH ×2 (12:05→21:28)
[2017-12-31] MEDS: Famotidine 20 MG TAB PO SCH ×2 (12:05→21:27)
[2017-12-31] MEDS: Docusate 100 MG CAP PO SCH ×2 (12:05→21:28)
[2017-12-31] MEDS: Carvedilol 3.125 MG TAB PO SCH ×2 (12:05→21:27)
[2017-12-31] MEDS: Spironolactone 25 MG TAB PO SCH (12:06)
[2017-12-31] MEDS: levETIRAcetam 500 MG TAB PO SCH ×2 (12:06→21:27)
--- NOTE | 2017-12-31 12:15 | NM ---
MYOCARDIAL PERFUSION SCAN: TECHNIQUE: The patient was given 27 mCi for stress imaging and 29 mCi for rest imaging. The left ventricle was entered for SPECT imaging and CT attenuation images obtained. The patient was stressed according to adenosine protocol. A 2-day protocol was followed. INDICATION: Dilated cardiomyopathy. FINDINGS: The left ventricle shows normal activity on stress and rest imaging. No evidence of reversible ische johanna. No fixed defect. Global hypokinesis. Ejection fraction is recorded at 39%. IMPRESSION: No evidence of reversible ischemia. Global hypokinesis with decreased ejection fraction. POS: [facility]
--- NOTE | 2017-12-31 12:41 | PDOC.CTH ---
Cardiology Progress Note - Subjective He is doing better today. No chest pain, breathing at baseline. - Objective Vital Signs Temp Pulse Pulse Resp BP BP BP 12/31/17 12:04 79 134/79 12/31/17 11:54 97.9 F 79 16 12/31/17 09:25 75 129/71 12/31/17 07:15 97.7 F 76 16 12/31/17 07:10 97.7 F 76 16 119/69 12/31/17 04:05 97.7 F 71 20 BP Pulse Ox Pulse Ox 12/31/17 12:04 12/31/17 11:54 134/79 100 12/31/17 09:25 96 12/31/17 07:15 96 12/31/17 07:10 96 12/31/17 04:05 119/69 96 Weight 154 lb 1.6 oz 12/30/17 12/31/17 01/01/18 06:59 06:59 06:59 Intake Total 1020 1100 Output Total 1900 2600 Balance -880 -1500 - Physical Examination General/Neuro: alert & oriented x3, NAD Neck: no JVD present Lungs: CTA, unlabored respirations Heart: RRR Abdomen: NT/ND Extremities: other: (no edema.) - Telemetry Telemetry Rhythm: NSR - Labs Result Diagrams: 12/31/17 04:21 12/31/17 04:21 Troponin/CKMB Troponin I 0.059 ng/mL (< 0.028) H 12/26/17 07:43 - Assessment/Plan 1. Acute on chronic systolic heart failure. 2. AMS 3. Schizophrenia 4. Severe LV dysfunction. EF at 39% on Stress test today. 5. Hx of PE PLAN: - Continue lasix PO. - On BB/ACEI/Aldactone - No ischemia on MPI, likely non ischemic. EF already improved at 39%, no indication for lifevest or AICD. - May d/c home any time from cardiac perspective. - Follow up in 1 month in the office.
--- NOTE | 2017-12-31 14:24 | PDOC.PN ---
- Subjective Encounter Start Date: 12/31/17 Encounter Start Time: 11:30 Subjective: pt up in bed no complains. - Objective Vital Signs & Weight: Vital Signs (12 hours) Temp Pulse Pulse Resp BP BP BP 12/31/17 12:04 79 134/79 12/31/17 11:54 97.9 F 79 16 12/31/17 09:25 75 129/71 12/31/17 07:15 97.7 F 76 16 12/31/17 07:10 97.7 F 76 16 119/69 12/31/17 04:05 97.7 F 71 20 BP Pulse Ox Pulse Ox 12/31/17 12:04 12/31/17 11:54 134/79 100 12/31/17 09:25 96 12/31/17 07:15 96 12/31/17 07:10 96 12/31/17 04:05 119/69 96 Weight Weight 154 lb 1.6 oz I&O: 12/30/17 12/31/17 01/01/18 06:59 06:59 06:59 Intake Total 1020 1100 Output Total 1900 2600 Balance -880 -1500 Result Diagrams: 12/31/17 04:21 12/31/17 04:21 Additional Labs: Accuchecks 12/31/17 12/31/17 12/30/17 11:55 06:05 20:40 POC Glucose 108 89 93 12/30/17 16:31 POC Glucose 74 Phys Exam - Physical Examination HEENT: PERRLA, moist MMs, sclera anicteric, TM's clear, oral pharynx no lesions , 2+ tonsils Neck: no nodes, no JVD, supple, full ROM Respiratory: no wheezing, no rales, no rhonchi, wheezing present, clear to auscultation bilateral Cardiovascular: RRR, no significant murmur, no rub, gallop, irregular Gastrointestinal: soft, non-tender, no distention, positive bowel sounds Musculoskeletal: no edema, pulses present, edema present Neurological: non-focal, normal sensation, moves all 4 limbs Dx/Plan (1) Acute on chronic systolic heart failure, NYHA class 3 Code(s): I50.23 - ACUTE ON CHRONIC SYSTOLIC (CONGESTIVE) HEART FAILURE Status : Acute (2) Acute metabolic encephalopathy Code(s): G93.41 - METABOLIC ENCEPHALOPATHY Status: Acute (3) Diabetes mellitus type 2 in nonobese Code(s): E11.9 - TYPE 2 DIABETES MELLITUS WITHOUT COMPLICATIONS Status: Acute (4) Swelling of left foot Code(s): M79.89 - OTHER SPECIFIED SOFT TISSUE DISORDERS Status: Acute (5) Hypertension Code(s): I10 - ESSENTIAL (PRIMARY) HYPERTENSION Status: Acute - Plan pt had stress test today -: will decrease dose of his lasix to daily -: possible discharge if ok with cardiology * . Review of Systems - Review of Systems Eyes: negative: Pain, Vision Change, Conjunctivae Inflammation, Eyelid Inflammation, Redness, Other ENT: negative: Ear Pain, Ear Discharge, Nose Pain, Nose Discharge, Nose Congestion, Mouth Pain, Mouth Swelling, Throat Pain, Throat Swelling, Other Respiratory: negative: Cough, Dry, Shortness of Breath, Hemoptysis, SOB with Excertion, Pleuritic Pain, Sputum, Wheezing Cardiovascular: negative: chest pain, palpitations, orthopnea, paroxysmal nocturnal dyspnea, edema, light headedness, other - Medications/Allergies Allergies/Adverse Reactions: Allergies Allergy/AdvReac Type Severity Reaction Status Date / Time No Known Allergies Allergy Verified 12/26/17 01:51 Medications: Current Medications Acetaminophen (Tylenol) 650 mg PO Q6H PRN PRN Reason: Mild Pain (1-3) Last Admin: 12/31/17 05:19 Dose: 650 mg Bisacodyl (Dulcolax) 10 mg IN DAILYPRN PRN PRN Reason: Constipation Last Admin: 12/28/17 09:21 Dose: 10 mg Carvedilol (Coreg) 3.125 mg PO BID [facility] Last Admin: 12/31/17 12:05 Dose: 3.125 mg Dextrose/Water (Dextrose 50%) 25 gm SLOW IVP PRN PRN PRN Reason: Hypoglycemia Docusate Sodium (Colace) 100 mg PO BID [facility] Last Admin: 12/31/17 12:05 Dose: 100 mg Famotidine (Pepcid) 20 mg PO BID [facility] Last Admin: 12/31/17 12:05 Dose: 20 mg Furosemide (Lasix) 40 mg PO DAILY [facility] Gabapentin (Neurontin) 100 mg PO BID [facility] Last Admin: 12/31/17 12:05 Dose: 100 mg Glucagon (Glucagon) 1 mg IM PRN PRN PRN Reason: Hypoglycemia Dextrose/Water (D5w) 1,000 mls @ 0 mls/hr IV .Q0M PRN; As Directed PRN Reason: Hypoglycemia Insulin Human Lispro (Humalog) 0 units SC .MODERATE SLIDING SC PRN PRN Reason: Moderate Correctional Scale Insulin Human Lispro (Humalog) 0 units SC .BEDTIME SLIDING SC PRN PRN Reason: Bedtime Correctional Scale Levetiracetam (Keppra) 500 mg PO BID [facility] Last Admin: 12/31/17 12:06 Dose: 500 mg Lisinopril (Zestril) 5 mg PO DAILY [facility] Last Admin: 12/31/17 12:04 Dose: 5 mg Lorazepam (Ativan) 0.5 mg SLOW IVP ONE PRN PRN Reason: PRE STRESS TEST USE Stop: 12/31/17 17:00 Magnesium Hydroxide (Milk Of Magnesium) 30 ml PO DAILYPRN PRN PRN Reason: Constipation Melatonin (Melatonin) 3 mg PO HS PRN PRN Reason: Insomnia Metformin HCl (Glucophage) 500 mg PO BID[facility] Last Admin: 12/31/17 08:40 Dose: Not Given Risperidone (Risperidone) 4 mg PO [facility] Last Admin: 12/30/17 20:25 Dose: 4 mg Rivaroxaban (Xarelto) 20 mg PO DAILY [facility] Last Admin: 12/31/17 12:05 Dose: 20 mg Senna (Senokot) 2 tab PO HSPRN PRN PRN Reason: Constipation Last Admin: 12/27/17 09:57 Dose: 2 tab Spironolactone (Aldactone) 12.5 mg PO QAM-[facility] Last Admin: 12/31/17 12:06 Dose: 12.5 mg
[2017-12-31] MEDS: risperiDONE 1 MG TAB PO SCH (21:26)
[2018-01-01] MEDS: Famotidine 20 MG TAB PO SCH ×2 (08:16→21:14)
[2018-01-01] MEDS: Spironolactone 25 MG TAB PO SCH (08:17)
[2018-01-01] MEDS: Lisinopril 5 MG TAB PO SCH (08:17)
[2018-01-01] MEDS: Rivaroxaban 10 MG TAB PO SCH (08:18)
[2018-01-01] MEDS: Gabapentin 100 MG CAP PO SCH (08:18)
[2018-01-01] MEDS: Carvedilol 3.125 MG TAB PO SCH ×2 (08:18→21:15)
[2018-01-01] MEDS: levETIRAcetam 500 MG TAB PO SCH ×2 (08:18→21:14)
[2018-01-01] MEDS: Furosemide 40 MG TAB PO SCH (08:18)
[2018-01-01] MEDS: metFORMIN 500 MG TAB PO SCH ×2 (08:18→17:02)
[2018-01-01] MEDS: Docusate 100 MG CAP PO SCH ×2 (08:19→21:14)
--- NOTE | 2018-01-01 14:07 | PDOC.PN ---
- Subjective Encounter Start Date: 01/01/18 Encounter Start Time: 10:00 Subjective: pt up in bed complains of pain to his lower ext - Objective Vital Signs & Weight: Vital Signs (12 hours) Temp Pulse Pulse Pulse Resp BP BP 01/01/18 10:34 80 80 127/78 134/85 01/01/18 08:12 97.9 F 70 16 01/01/18 08:00 97.9 F 70 16 01/01/18 03:43 97.9 F 80 12 BP BP Pulse Ox 01/01/18 10:34 01/01/18 08:12 111/69 96 01/01/18 08:00 96 01/01/18 03:43 142/92 H 96 Weight Weight 146 lb 14.4 oz I&O: 12/31/17 01/01/18 01/02/18 06:59 06:59 06:59 Intake Total 1100 1220 Output Total 2600 1200 Balance -1500 20 Result Diagrams: 12/31/17 04:21 12/31/17 04:21 Additional Labs: Accuchecks 01/01/18 01/01/18 12/31/17 10:30 06:00 20:52 POC Glucose 108 125 H 94 12/31/17 16:39 POC Glucose 117 H Phys Exam - Physical Examination HEENT: PERRLA, moist MMs, sclera anicteric, TM's clear, oral pharynx no lesions , 2+ tonsils Neck: no nodes, no JVD, supple, full ROM Respiratory: no wheezing, no rales, no rhonchi, wheezing present, clear to auscultation bilateral Cardiovascular: RRR, no significant murmur, no rub, gallop, irregular Gastrointestinal: soft, positive bowel sounds Musculoskeletal: no edema no erythema present to lower legs Neurological: non-focal, normal sensation, moves all 4 limbs Dx/Plan (1) Acute on chronic systolic heart failure, NYHA class 3 Code(s): I50.23 - ACUTE ON CHRONIC SYSTOLIC (CONGESTIVE) HEART FAILURE Status : Acute (2) Acute metabolic encephalopathy Code(s): G93.41 - METABOLIC ENCEPHALOPATHY Status: Acute (3) Diabetes mellitus type 2 in nonobese Code(s): E11.9 - TYPE 2 DIABETES MELLITUS WITHOUT COMPLICATIONS Status: Acute (4) Swelling of left foot Code(s): M79.89 - OTHER SPECIFIED SOFT TISSUE DISORDERS Status: Acute (5) Hypertension Code(s): I10 - ESSENTIAL (PRIMARY) HYPERTENSION Status: Acute - Plan spoke with pt's sister who agreeded on pt to go to rehab. -: he is still unstable on his feet. -: stress test ok per cards -: continue bb/león/diuretic * . Review of Systems - Review of Systems ENT: negative: Ear Pain, Ear Discharge, Nose Pain, Nose Discharge, Nose Congestion, Mouth Pain, Mouth Swelling, Throat Pain, Throat Swelling, Other Respiratory: negative: Cough, Dry, Shortness of Breath, Hemoptysis, SOB with Excertion, Pleuritic Pain, Sputum, Wheezing Cardiovascular: negative: chest pain, palpitations, orthopnea, paroxysmal nocturnal dyspnea, edema, light headedness, other Gastrointestinal: negative: Nausea, Vomiting, Abdominal Pain, Diarrhea, Constipation, Melena, Hematochezia, Other Musculoskeletal: Foot Pain - Medications/Allergies Allergies/Adverse Reactions: Allergies Allergy/AdvReac Type Severity Reaction Status Date / Time No Known Allergies Allergy Verified 12/26/17 01:51 Medications: Current Medications Acetaminophen (Tylenol) 650 mg PO Q6H PRN PRN Reason: Mild Pain (1-3) Last Admin: 12/31/17 17:03 Dose: 650 mg Bisacodyl (Dulcolax) 10 mg [place] DAILYPRN PRN PRN Reason: Constipation Last Admin: 12/28/17 09:21 Dose: 10 mg Carvedilol (Coreg) 3.125 mg PO BID [facility] Last Admin: 01/01/18 08:18 Dose: 3.125 mg Dextrose/Water (Dextrose 50%) 25 gm SLOW IVP PRN PRN PRN Reason: Hypoglycemia Docusate Sodium (Colace) 100 mg PO BID [facility] Last Admin: 01/01/18 08:19 Dose: Not Given Famotidine (Pepcid) 20 mg PO BID [facility] Last Admin: 01/01/18 08:16 Dose: 20 mg Furosemide (Lasix) 40 mg PO DAILY [facility] Last Admin: 01/01/18 08:18 Dose: 40 mg Gabapentin (Neurontin) 300 mg PO BID [facility] Glucagon (Glucagon) 1 mg IM PRN PRN PRN Reason: Hypoglycemia Dextrose/Water (D5w) 1,000 mls @ 0 mls/hr IV .Q0M PRN; As Directed PRN Reason: Hypoglycemia Insulin Human Lispro (Humalog) 0 units SC .MODERATE SLIDING SC PRN PRN Reason: Moderate Correctional Scale Insulin Human Lispro (Humalog) 0 units SC .BEDTIME SLIDING SC PRN PRN Reason: Bedtime Correctional Scale Levetiracetam (Keppra) 500 mg PO BID [facility] Last Admin: 01/01/18 08:18 Dose: 500 mg Lisinopril (Zestril) 5 mg PO DAILY [facility] Last Admin: 01/01/18 08:17 Dose: 5 mg Magnesium Hydroxide (Milk Of Magnesium) 30 ml PO DAILYPRN PRN PRN Reason: Constipation Melatonin (Melatonin) 3 mg PO HS PRN PRN Reason: Insomnia Metformin HCl (Glucophage) 500 mg PO BID-[facility] Last Admin: 01/01/18 08:18 Dose: 500 mg Risperidone (Risperidone) 4 mg PO [facility] Last Admin: 12/31/17 21:26 Dose: 4 mg Rivaroxaban (Xarelto) 20 mg PO DAILY [facility] Last Admin: 01/01/18 08:18 Dose: 20 mg Senna (Senokot) 2 tab PO HSPRN PRN PRN Reason: Constipation Last Admin: 12/27/17 09:57 Dose: 2 tab Spironolactone (Aldactone) 12.5 mg PO [facility] Last Admin: 01/01/18 08:17 Dose: 12.5 mg
[2018-01-01] MEDS: Acetaminophen 325 MG TAB PO PRN (21:14)
[2018-01-01] MEDS: risperiDONE 1 MG TAB PO SCH (21:14)
[2018-01-01] MEDS: Gabapentin 300 MG CAP PO SCH (21:15)
[2018-01-02 04:29] LABS: Hemoglobin 13.5 g/dL (14.0-18.0); Platelet Count 344 thou/uL (130-400)
[2018-01-02] MEDS: Acetaminophen 325 MG TAB PO PRN ×2 (09:02→19:43)
[2018-01-02] MEDS: Carvedilol 3.125 MG TAB PO SCH ×2 (09:03→19:44)
[2018-01-02] MEDS: Gabapentin 300 MG CAP PO SCH ×2 (09:03→19:43)
[2018-01-02] MEDS: Spironolactone 25 MG TAB PO SCH (09:03)
[2018-01-02] MEDS: levETIRAcetam 500 MG TAB PO SCH ×2 (09:03→19:43)
[2018-01-02] MEDS: Docusate 100 MG CAP PO SCH ×2 (09:03→19:44)
[2018-01-02] MEDS: metFORMIN 500 MG TAB PO SCH ×2 (09:03→16:58)
[2018-01-02] MEDS: Rivaroxaban 10 MG TAB PO SCH (09:03)
[2018-01-02] MEDS: Famotidine 20 MG TAB PO SCH ×2 (09:03→19:43)
[2018-01-02] MEDS: Furosemide 40 MG TAB PO SCH (09:03)
[2018-01-02] MEDS: Lisinopril 5 MG TAB PO SCH (09:04)
--- NOTE | 2018-01-02 14:52 | PDOC.PN ---
- Subjective Encounter Start Date: 01/02/18 Encounter Start Time: 11:00 Subjective: pt up in bed chair no complains - Objective Vital Signs & Weight: Vital Signs (12 hours) Temp Pulse Resp BP BP Pulse Ox 01/02/18 11:27 98 F 73 16 121/76 98 01/02/18 09:04 71 125/76 01/02/18 07:20 98.2 F 71 16 125/76 99 01/02/18 07:10 98.2 F 71 16 99 01/02/18 04:00 98.2 F 76 12 133/79 96 Weight Weight 154 lb 9.6 oz I&O: 01/01/18 01/02/18 01/03/18 06:59 06:59 06:59 Intake Total 1220 1280 Output Total 1200 120 Balance 20 1160 Result Diagrams: 01/02/18 04:01 01/02/18 04:01 Additional Labs: Accuchecks 01/02/18 01/02/18 01/01/18 11:15 06:43 20:33 POC Glucose 223 H 98 89 01/01/18 16:19 POC Glucose 125 H Phys Exam - Physical Examination HEENT: PERRLA, moist MMs, sclera anicteric, TM's clear, oral pharynx no lesions , 2+ tonsils Neck: no nodes, no JVD, supple, full ROM Respiratory: no wheezing, no rales, no rhonchi, wheezing present, clear to auscultation bilateral Cardiovascular: RRR, no significant murmur, no rub, gallop, irregular Gastrointestinal: soft, non-tender, no distention, positive bowel sounds Dx/Plan (1) Acute on chronic systolic heart failure, NYHA class 3 Code(s): I50.23 - ACUTE ON CHRONIC SYSTOLIC (CONGESTIVE) HEART FAILURE Status : Acute (2) Acute metabolic encephalopathy Code(s): G93.41 - METABOLIC ENCEPHALOPATHY Status: Acute (3) Diabetes mellitus type 2 in nonobese Code(s): E11.9 - TYPE 2 DIABETES MELLITUS WITHOUT COMPLICATIONS Status: Acute (4) Swelling of left foot Code(s): M79.89 - OTHER SPECIFIED SOFT TISSUE DISORDERS Status: Acute (5) Hypertension Code(s): I10 - ESSENTIAL (PRIMARY) HYPERTENSION Status: Acute - Plan awaiting to be placed since family does not feel comfortable taking pt home -: he lives alone and is unsteady on his feet -: will continue heart failure drugs -: bilateral lower foot pain better. pt on gabapentin * . Review of Systems - Review of Systems ENT: negative: Ear Pain, Ear Discharge, Nose Pain, Nose Discharge, Nose Congestion, Mouth Pain, Mouth Swelling, Throat Pain, Throat Swelling, Other Respiratory: negative: Cough, Dry, Shortness of Breath, Hemoptysis, SOB with Excertion, Pleuritic Pain, Sputum, Wheezing Cardiovascular: negative: chest pain, palpitations, orthopnea, paroxysmal nocturnal dyspnea, edema, light headedness, other Gastrointestinal: negative: Nausea, Vomiting, Abdominal Pain, Diarrhea, Constipation, Melena, Hematochezia, Other - Medications/Allergies Allergies/Adverse Reactions: Allergies Allergy/AdvReac Type Severity Reaction Status Date / Time No Known Allergies Allergy Verified 12/26/17 01:51 Medications: Current Medications Acetaminophen (Tylenol) 650 mg PO Q6H PRN PRN Reason: Mild Pain (1-3) Last Admin: 01/02/18 09:02 Dose: 650 mg Bisacodyl (Dulcolax) 10 mg [place] DAILYPRN PRN PRN Reason: Constipation Last Admin: 12/28/17 09:21 Dose: 10 mg Carvedilol (Coreg) 3.125 mg PO BID [facility] Last Admin: 01/02/18 09:03 Dose: 3.125 mg Dextrose/Water (Dextrose 50%) 25 gm SLOW IVP PRN PRN PRN Reason: Hypoglycemia Docusate Sodium (Colace) 100 mg PO BID [facility] Last Admin: 01/02/18 09:03 Dose: 100 mg Famotidine (Pepcid) 20 mg PO BID [facility] Last Admin: 01/02/18 09:03 Dose: 20 mg Furosemide (Lasix) 40 mg PO DAILY [facility] Last Admin: 01/02/18 09:03 Dose: 40 mg Gabapentin (Neurontin) 300 mg PO BID [facility] Last Admin: 01/02/18 09:03 Dose: 300 mg Glucagon (Glucagon) 1 mg IM PRN PRN PRN Reason: Hypoglycemia Dextrose/Water (D5w) 1,000 mls @ 0 mls/hr IV .Q0M PRN; As Directed PRN Reason: Hypoglycemia Insulin Human Lispro (Humalog) 0 units SC .MODERATE SLIDING SC PRN PRN Reason: Moderate Correctional Scale Insulin Human Lispro (Humalog) 0 units SC .BEDTIME SLIDING SC PRN PRN Reason: Bedtime Correctional Scale Levetiracetam (Keppra) 500 mg PO BID [facility] Last Admin: 01/02/18 09:03 Dose: 500 mg Lisinopril (Zestril) 5 mg PO DAILY [facility] Last Admin: 01/02/18 09:04 Dose: 5 mg Magnesium Hydroxide (Milk Of Magnesium) 30 ml PO DAILYPRN PRN PRN Reason: Constipation Melatonin (Melatonin) 3 mg PO HS PRN PRN Reason: Insomnia Metformin HCl (Glucophage) 500 mg PO BID[facility] Last Admin: 01/02/18 09:03 Dose: 500 mg Risperidone (Risperidone) 4 mg PO [facility] Last Admin: 01/01/18 21:14 Dose: 4 mg Rivaroxaban (Xarelto) 20 mg PO DAILY [facility] Last Admin: 01/02/18 09:03 Dose: 20 mg Senna (Senokot) 2 tab PO HSPRN PRN PRN Reason: Constipation Last Admin: 12/27/17 09:57 Dose: 2 tab Spironolactone (Aldactone) 12.5 mg PO QAM-[facility] Last Admin: 01/02/18 09:03 Dose: 12.5 mg
[2018-01-02] MEDS: risperiDONE 1 MG TAB PO SCH (19:43)
[2018-01-03] MEDS: Spironolactone 25 MG TAB PO SCH (07:56)
[2018-01-03] MEDS: Gabapentin 300 MG CAP PO SCH ×2 (07:56→20:52)
[2018-01-03] MEDS: Lisinopril 5 MG TAB PO SCH (07:56)
[2018-01-03] MEDS: Rivaroxaban 10 MG TAB PO SCH (07:56)
[2018-01-03] MEDS: Furosemide 40 MG TAB PO SCH (07:57)
[2018-01-03] MEDS: metFORMIN 500 MG TAB PO SCH ×2 (07:57→16:46)
[2018-01-03] MEDS: Famotidine 20 MG TAB PO SCH ×2 (07:57→20:53)
[2018-01-03] MEDS: Docusate 100 MG CAP PO SCH ×2 (07:57→20:53)
[2018-01-03] MEDS: Carvedilol 3.125 MG TAB PO SCH ×2 (07:57→20:53)
[2018-01-03] MEDS: levETIRAcetam 500 MG TAB PO SCH ×2 (07:57→20:52)
[2018-01-03] MEDS: Acetaminophen 325 MG TAB PO PRN (07:57)
--- NOTE | 2018-01-03 11:58 | PDOC.CTH ---
Cardiology Progress Note - Subjective He is doing well. SOB is at baseline. No chest pain. - Objective Vital Signs Temp Pulse Resp BP BP Pulse Ox 01/03/18 11:13 98.1 F 72 16 118/78 98 01/03/18 08:00 97 F L 67 16 94 L 01/03/18 07:56 67 01/03/18 07:26 97 F L 67 16 110/66 94 L 01/03/18 04:00 98.4 F 77 14 135/90 94 L 01/03/18 00:00 98.6 F 75 14 130/79 94 L Weight 153 lb 01/02/18 01/03/18 01/04/18 06:59 06:59 06:59 Intake Total 1280 970 Output Total 120 600 Balance 1160 370 - Physical Examination General/Neuro: NAD Neck: no JVD present Lungs: CTA, unlabored respirations Heart: RRR Abdomen: NT/ND Extremities: other: (none) - Telemetry Telemetry Rhythm: NSR - Labs Result Diagrams: 01/02/18 04:01 01/02/18 04:01 Troponin/CKMB Troponin I 0.059 ng/mL (< 0.028) H 12/26/17 07:43 - Assessment/Plan 1. Acute on chronic systolic heart failure. 2. AMS 3. Schizophrenia 4. Severe LV dysfunction. EF at 39% on Stress test today. 5. Hx of PE PLAN: - Continue lasix PO. - On BB/ACEI/Aldactone - No ischemia on MPI, likely non ischemic. EF already improved at 39%, no indication for lifevest or AICD. - May d/c home any time from cardiac perspective. - Follow up in 1 month in the office. - Will sign off. Please call with any questions.
[2018-01-03 12:10] LABS: Anion Gap 17 mmol/L (10-20); BUN (Urea Nitrogen) 15 mg/dL (8.4-25.7); Calc. Creatinine Clearance 53 mL/min (70-130); Calcium 9.9 mg/dL (7.8-10.44); Carbon Dioxide 26 mmol/L (23-31); Chloride 101 mmol/L (98-107); Estimated GFR-MDRD 64; Glucose 86 mg/dL (80-115); Sodium 140 mmol/L (136-145)
[2018-01-03] MEDS: risperiDONE 1 MG TAB PO SCH (20:52)
--- NOTE | 2018-01-03 21:39 | PDOC.PN ---
- Subjective Encounter Start Date: 01/03/18 Encounter Start Time: 10:35 Subjective: pt up in bed no complains - Objective Vital Signs & Weight: Vital Signs (12 hours) Temp Pulse Pulse Resp BP BP BP 01/03/18 15:29 97.9 F 73 18 112/73 01/03/18 11:13 98.1 F 72 16 118/78 01/03/18 09:53 75 132/80 Pulse Ox 01/03/18 15:29 96 01/03/18 11:13 98 01/03/18 09:53 Weight Weight 153 lb I&O: 01/02/18 01/03/18 01/04/18 06:59 06:59 06:59 Intake Total 1280 970 600 Output Total 120 600 825 Balance 1160 370 -225 Result Diagrams: 01/02/18 04:01 01/03/18 11:25 Additional Labs: Accuchecks 01/03/18 01/03/18 01/03/18 20:51 16:02 11:17 POC Glucose 103 108 95 01/03/18 06:26 POC Glucose 85 Phys Exam - Physical Examination HEENT: PERRLA, moist MMs, sclera anicteric, TM's clear, oral pharynx no lesions , 2+ tonsils Neck: no nodes, no JVD, supple, full ROM Respiratory: no wheezing, no rales, no rhonchi, wheezing present, clear to auscultation bilateral Cardiovascular: RRR, no significant murmur, no rub, gallop, irregular Gastrointestinal: soft, non-tender, no distention, positive bowel sounds Dx/Plan (1) Acute on chronic systolic heart failure, NYHA class 3 Code(s): I50.23 - ACUTE ON CHRONIC SYSTOLIC (CONGESTIVE) HEART FAILURE Status : Acute (2) Acute metabolic encephalopathy Code(s): G93.41 - METABOLIC ENCEPHALOPATHY Status: Acute (3) Diabetes mellitus type 2 in nonobese Code(s): E11.9 - TYPE 2 DIABETES MELLITUS WITHOUT COMPLICATIONS Status: Acute (4) Swelling of left foot Code(s): M79.89 - OTHER SPECIFIED SOFT TISSUE DISORDERS Status: Acute (5) Hypertension Code(s): I10 - ESSENTIAL (PRIMARY) HYPERTENSION Status: Acute - Plan spoke with pt's sister and pt -: He is ok to go to rehab/snf -: spoke with case managment this am -: continue current meds * . Review of Systems - Review of Systems ENT: negative: Ear Pain, Ear Discharge, Nose Pain, Nose Discharge, Nose Congestion, Mouth Pain, Mouth Swelling, Throat Pain, Throat Swelling, Other Respiratory: negative: Cough, Dry, Shortness of Breath, Hemoptysis, SOB with Excertion, Pleuritic Pain, Sputum, Wheezing Cardiovascular: negative: chest pain, palpitations, orthopnea, paroxysmal nocturnal dyspnea, edema, light headedness, other Gastrointestinal: negative: Nausea, Vomiting, Abdominal Pain, Diarrhea, Constipation, Melena, Hematochezia, Other - Medications/Allergies Allergies/Adverse Reactions: Allergies Allergy/AdvReac Type Severity Reaction Status Date / Time No Known Allergies Allergy Verified 12/26/17 01:51 Medications: Current Medications Acetaminophen (Tylenol) 650 mg PO Q6H PRN PRN Reason: Mild Pain (1-3) Last Admin: 01/03/18 07:57 Dose: 650 mg Bisacodyl (Dulcolax) 10 mg [place] DAILYPRN PRN PRN Reason: Constipation Last Admin: 12/28/17 09:21 Dose: 10 mg Carvedilol (Coreg) 3.125 mg PO BID [facility] Last Admin: 01/03/18 20:53 Dose: 3.125 mg Dextrose/Water (Dextrose 50%) 25 gm SLOW IVP PRN PRN PRN Reason: Hypoglycemia Docusate Sodium (Colace) 100 mg PO BID [facility] Last Admin: 01/03/18 20:53 Dose: 100 mg Famotidine (Pepcid) 20 mg PO BID [facility] Last Admin: 01/03/18 20:53 Dose: 20 mg Furosemide (Lasix) 40 mg PO DAILY [facility] Last Admin: 01/03/18 07:57 Dose: 40 mg Gabapentin (Neurontin) 300 mg PO BID [facility] Last Admin: 01/03/18 20:52 Dose: 300 mg Glucagon (Glucagon) 1 mg IM PRN PRN PRN Reason: Hypoglycemia Dextrose/Water (D5w) 1,000 mls @ 0 mls/hr IV .Q0M PRN; As Directed PRN Reason: Hypoglycemia Insulin Human Lispro (Humalog) 0 units SC .MODERATE SLIDING SC PRN PRN Reason: Moderate Correctional Scale Insulin Human Lispro (Humalog) 0 units SC .BEDTIME SLIDING SC PRN PRN Reason: Bedtime Correctional Scale Levetiracetam (Keppra) 500 mg PO BID [facility] Last Admin: 01/03/18 20:52 Dose: 500 mg Lisinopril (Zestril) 5 mg PO DAILY [facility] Last Admin: 01/03/18 07:56 Dose: 5 mg Magnesium Hydroxide (Milk Of Magnesium) 30 ml PO DAILYPRN PRN PRN Reason: Constipation Melatonin (Melatonin) 3 mg PO HS PRN PRN Reason: Insomnia Last Admin: 01/02/18 19:42 Dose: 3 mg Metformin HCl (Glucophage) 500 mg PO BID[facility] Last Admin: 01/03/18 16:46 Dose: 500 mg Risperidone (Risperidone) 4 mg PO HS [facility] Last Admin: 01/03/18 20:52 Dose: 4 mg Rivaroxaban (Xarelto) 20 mg PO DAILY [facility] Last Admin: 01/03/18 07:56 Dose: 20 mg Senna (Senokot) 2 tab PO HSPRN PRN PRN Reason: Constipation Last Admin: 12/27/17 09:57 Dose: 2 tab Spironolactone (Aldactone) 12.5 mg PO QAM[facility] Last Admin: 01/03/18 07:56 Dose: 12.5 mg
[2018-01-04 04:46] LABS: Hemoglobin 13.7 g/dL (14.0-18.0); Platelet Count 364 thou/uL (130-400)
[2018-01-04] MEDS: Rivaroxaban 10 MG TAB PO SCH (08:51)
[2018-01-04] MEDS: metFORMIN 500 MG TAB PO SCH (08:51)
[2018-01-04] MEDS: Carvedilol 3.125 MG TAB PO SCH (08:51)
[2018-01-04] MEDS: Spironolactone 25 MG TAB PO SCH (08:52)
[2018-01-04] MEDS: Furosemide 40 MG TAB PO SCH (08:52)
[2018-01-04] MEDS: Gabapentin 300 MG CAP PO SCH (08:52)
[2018-01-04] MEDS: Docusate 100 MG CAP PO SCH (08:52)
[2018-01-04] MEDS: levETIRAcetam 500 MG TAB PO SCH (08:52)
[2018-01-04] MEDS: Famotidine 20 MG TAB PO SCH (08:52)
[2018-01-04] MEDS: Lisinopril 5 MG TAB PO SCH (09:50)
[2018-01-04 19:17] VITALS: BP 111/68; TEMP 98
--- NOTE | 2018-01-05 02:09 | DIS ---
DATE OF ADMISSION: 12/26/2017 DATE OF DISCHARGE: 01/04/2018 DISCHARGE DIAGNOSES: 1. New systolic heart failure, acute. 2. Hypertension. 3. Diabetic neuropathy. 4. Abdominal pain. 5. Lower extremity edema. 6. Diabetes. 7. Acute metabolic encephalopathy, which has been resolved. HOSPITAL COURSE: The patient is a very pleasant 67-year-old male with a history of schizophrenia who lives alone with significant family support around, who initially came into the hospital with compla ints of abdominal pain and confusion. Patient then underwent an echocardiogram, which indicated an E F of 15-20%. Patient at that time was seen by Cardiology, underwent a stress test later on in the [facility] stay, which indicated that his EF had actually improved to 39%. Patient also was initially st arted on IV diuretics. He was put on heart failure medications. Patient's abdominal pain continued to improve. Patient initially was treated for possible cellulitis of his left foot. However, upon f urther evaluation, he only had a pretty small abrasion and his antibiotics were discontinued. The celia dominique did have complained of significant pain to his lower extremity for which a lower extremity santiago rial Doppler was ordered. The Doppler indicated poorly visualization of the right anterior tibial ar jennifer. Otherwise, no evidence of arterial occlusion seen in either lower extremities. The patient wa s put on Neurontin and the dose was increased, patient stated that significantly helped his pain. Th e patient, however, upon ambulation appeared to be very weak and given the fact that he lives alone, recommended inpatient rehab for further evaluation. Patient and family have agreed on this. Patient will be discharged home. Follow up with Cardiology in a month and PCP in a week. PHYSICAL EXAMINATION: VITAL SIGNS: 97.7, 75, 127/68, 79 heart rate, 95% on room air. GENERAL: He is awake, alert, oriented x3, does not appear in distress. CARDIOVASCULAR: S1, S2 present. No murmurs, rubs, or gallops. ABDOMEN: Soft, nontender. Bowel sounds present x2. EXTREMITIES: No edema. DISCHARGE MEDICATIONS: Patient's home medications are as the following: He is going to go home on C olace 100 mg p.o. b.i.d., Lasix 40 mg daily, gabapentin 300 mg b.i.d., Zestril 5 mg daily, spironolac tone 12.5 mg daily, Coreg 3.125 p.o. b.i.d., Keppra 500 mg b.i.d., Xarelto 20 mg daily, metformin 500 mg b.i.d., and Risperdal 4 mg at bedtime. Patient has a history of PE and that is why he is on Xare lto. The patient also was found to have hyponatremia, which most likely due to his heart failure, wh ich improved without any intervention.
--- NOTE | 2018-01-05 14:52 | HP ---
HISTORY OF PRESENT ILLNESS: This is a 67-year-old male with a history of hypertension, hyperlipidemi a, schizophrenia, type 2 diabetes, CHF, came in with a chief complaint of abdominal discomfort pain. Patient reports a progressive 3-day course of abdominal distention, pain with some accompanying nause a and vomiting x1. Denies any diarrhea, but does endorse constipation and also complains of some foster rtness of breath, particularly with exertion. He indicates this is consistent with prior episodes of fluid overload. REVIEW OF SYSTEMS: Per HPI. Constitutional: The patient does not weigh himself and is not aware of any overt weight loss or gain. Denies any fevers or chills. HEENT: No new headache, vision loss, dizziness or lightheadedness. Cardiovascular: No chest pain or chest pressure, no left-sided arm nu mbness or tingling. No episodes of diaphoresis. Shortness of breath as described above. Respirator y: As per HPI, shortness of breath . Patient denies any cough. Denies any sinus congestion. Gastrointestinal: As per above. Genitourinary: Denies any dysuria, changes in urinary frequency, q uality, quantity or odor. Musculoskeletal: Denies any new myalgias or arthralgias. Denies any new rashes or lymphadenopathy, just generalized swelling throughout. The remainder of the review of systems otherwise negative. PAST MEDICAL HISTORY: 1. Diabetes. 2. Hypertension. 3. Hyperlipidemia. 4. Schizophrenia. PAST SURGICAL HISTORY: No known surgical history. HOME MEDICATIONS: Please see the EMR for full details. His home list includes risperidone 4 mg p.o. at bedtime, metformin 500 mg p.o. b.i.d., rivaroxaban 20 mg p.o. daily, levetiracetam 500 mg p.o. b. i.d., Carvedilol 3.125 mg p.o. b.i.d. ALLERGIES: No known drug allergies. FAMILY HISTORY: The patient does not endorse a family history of recurrent cardiac issues, specifica lly heart failure. SOCIAL HISTORY: Denies any alcohol, tobacco or illicit drug use. PHYSICAL EXAMINATION: GENERAL: The patient is awake, alert, in no acute distress, seated in the hospital bed. HEENT: Normocephalic, atraumatic. Ocular motions are intact. HEENT: Slightly dry mucous membranes. CARDIOVASCULAR: S1, S2. Soft heart tones. Pulses 2+ bilateral upper extremities, 2-3+ bilateral pi tting pedal edema. RESPIRATORY: Marginal air movement. No overt wheezes, rales or rhonchi. No conversational dyspnea. RESPIRATORY: Grossly clear to auscultation bilaterally. ABDOMEN: Positive bowel sounds. LABORATORY DATA: Ultrasound of abdomen. Impression: "Mild minimal ascites with small amount of gunnar e fluid around the margin. Right pleural effusion. Cholelithiasis. The followup bladder wall as ed ematous, possibly on the basis of ascites. Negative Ying's sign." WBC 11.0, hemoglobin 12.7, mariana tocrit 38.7, platelets 458. Sodium 121, potassium 4.2, chloride 89, bicarbonate 24, BUN 12, creatini ne 1.04, glucose 105, uric acid 8.1, calcium 8.8, total bilirubin 1.4, direct bilirubin 0.7, AST 15, ALT 8, alkaline phosphatase 128, ammonia 27. Troponin initial 0.012 followed by 0.059. BNP natriure tic peptide 811.9. UA is essentially . ASSESSMENT AND PLAN: 1. This is a 67-year-old, male who presents with a chief complaint of abdominal distention and short ness of breath. . Ultrasound of abdomen as per above. Obtain cardiac ultrasound as well. Anabelle martin has been started on diuresis for symptomatic therapy. 2. We will continue to closely monitor the patient's electrolytes and renal status while undergoing and after diuresis. 3. Hyponatremia. See discussion above. I appreciate Nephrology consultation. We will need close m onitoring. Mental status appears to be unaffected at this point in time. 4. Elevated troponin. Please see above with consulted Cardiology. 5. Hypertension, stable. Continue home regimen. 6. Hyperlipidemia, stable. Continue home regimen. 7. Type 2 diabetes. We will check hemoglobin A1c. Continue the patient on his home regimen. 8. Psychiatric history of schizophrenia. Continue on home regimen. We will also check a leve l in the meantime. 9. . See discussion above. 10. Diet: Diabetic, cardiac. 11. Activity: As tolerated. 12. Deep venous thrombosis prophylaxis.
== END 2018-01-04 14:45 | DRG 291 ==
LOC: ERS 22:17 → 2NO 12-26 00:48
PROVIDERS: ADMIT Internal Medicine; ATTEND Internal Medicine
DX: I11.0 Hypertensive heart disease with heart failure (principal); G93.41 Metabolic encephalopathy; E87.1 Hypo-osmolality and hyponatremia; I50.23 Acute on chronic systolic (congestive) heart failure; E11.40 Type 2 diabetes mellitus with diabetic neuropathy, unspecified; F20.9 Schizophrenia, unspecified; S90.812A Abrasion, left foot, initial encounter; I42.9 Cardiomyopathy, unspecified; G40.909 Epilepsy, unspecified, not intractable, without status epilepticus; K80.20 Calculus of gallbladder without cholecystitis without obstruction; E78.5 Hyperlipidemia, unspecified; Z86.711 Personal history of pulmonary embolism; Z79.01 Long term (current) use of anticoagulants
CPT/HCPCS: 36415; 36416; 71045; 74018; 76705; 78452; 80048; 80076; 80177; 81003; 82140; 82565; 83036; 83880; 84484; 84550; 85014; 85018; 85025; 85049; 93005; 93017; 93306; 93798; 93923; 94760; A9500; G8978-GP-CL; G8979-GP-CJ; G8987-GO-CL; G8988-GO-CJ; J0153; J0696; J1940; J7050; S0028